=== PATIENT | female | born 1970 | race American Indian/Alaskan Native ===

== ENCOUNTER 2016-10-28 13:02 | Emergency (ER) | payer MEDICAID ==
[2016-10-28 13:09] VITALS: BMI 24.7
[2016-10-28 13:14] VITALS: TEMP 98.6
[2016-10-28] MEDS ORDERED: Sodium Chloride 0.9% 1,000 ML IV ONE (13:24)
--- NOTE | 2016-10-28 13:26 | ED PDOC ---
Arrival/HPI - General Chief Complaint: High Blood Sugar Time Seen by Provider: 10/28/16 13:20 Historian: Patient - History of Present Illness Narrative History of Present Illness (Text): 10/28/16 13:20 A 46 year old female, whose past medical history includes diabetes on Januvia, hypertension and MS, presents to the emergency department complaining of high blood sugar since today. Patient is unsure of how high her blood sugar measured. Patient is asymptomatic and denies any complaints. Patient denies any fever, chills, body aches, nausea, vomiting, diarrhea, abdominal pain, urinary symptoms, chest pain, shortness of breath, cough, sore throat, sinus congestion , rhinorrhea or any other complaints. PMD: Dr. Suly Jin Time/Duration: Other (Today) Symptom Course: Unchanged Quality: Other Context: Other Past Medical History - Provider Review Nursing Documentation Reviewed: Yes - Infectious Disease Hx of Infectious Diseases: None - Cardiac Hx Cardiac Disorders: Yes Hx Hypertension: Yes - Pulmonary Hx Respiratory Disorders: Yes Hx Asthma: Yes - Neurological Hx Neurological Disorder: Yes Hx Meningitis: Yes Hx Multiple Sclerosis: Yes Other/Comment: Rt. sided brain aneurysm - Endocrine/Metabolic Hx Endocrine Disorders: Yes Hx Diabetes Mellitus Type 2: Yes - Musculoskeletal/Rheumatological Hx Falls: No - Psychiatric Hx Psychophysiologic Disorder: Yes Hx Anxiety: Yes Hx Bipolar Disorder: Yes Hx Depression: Yes Hx Panic Disorder: Yes Hx Substance Use: No - Surgical History Hx Section: Yes Other/Comment: neuro - Anesthesia Hx Anesthesia: No Hx Anesthesia Reactions: No Family/Social History - Physician Review Nursing Documentation Reviewed: Yes Family/Social History: No Known Family HX Smoking Status: Never Smoked Hx Alcohol Use: Yes Frequency of alcohol use: Socially Hx Substance Use: No Allergies/Home Meds Allergies/Adverse Reactions: Allergies No Known Allergies Allergy (Verified 04/10/16 19:10) Home Medications: Home Meds Medication Instructions Recorded Confirmed Atorvastatin [Lipitor] 40 mg PO DAILY 12/30/15 10/28/16 Glimepiride [amaRYL] 2 mg PO BID 12/30/15 10/28/16 MetFORMIN [glucoPHAGE] 1,000 mg PO BID 12/30/15 10/28/16 Metoprolol Succinate [Toprol XL] 100 mg PO DAILY 12/30/15 10/28/16 QUEtiapine [SEROquel] 300 mg PO DAILY 12/30/15 10/28/16 SITagliptin [Januvia] 100 mg PO DAILY 12/30/15 10/28/16 Tolterodine [Detrol LA] 4 mg PO DAILY 12/30/15 10/28/16 Valsartan [Diovan] 160 mg PO DAILY 12/30/15 10/28/16 buPROPion XL [Wellbutrin XL] 300 mg PO DAILY 12/30/15 10/28/16 Review of Systems - Physician Review All systems were reviewed & negative as marked: Yes - Review of Systems Constitutional: Other (High blood pressure). absent: Fevers, Night Sweats ENT: absent: Sore Throat, Rhinorrhea, Sinus Congestion Respiratory: absent: SOB, Cough Cardiovascular: absent: Chest Pain Gastrointestinal: absent: Abdominal Pain, Diarrhea, Nausea, Vomiting Genitourinary Female: absent: Dysuria, Frequency, Hematuria, Urine Output Changes Musculoskeletal: absent: Myalgias Physical Exam Vital Signs Reviewed: Yes Vital Signs Temp Pulse Resp BP Pulse Ox 10/28/16 16:47 71 17 180/100 H 97 10/28/16 15:54 78 203/132 H 10/28/16 15:53 81 203/132 H 10/28/16 15:40 74 20 203/132 H 99 10/28/16 13:02 98.6 F 91 H 16 182/103 H 99 Temperature: Afebrile Blood Pressure: Hypertensive Pulse: Tachycardic Respiratory Rate: Normal Appearance: Positive for: Well-Appearing, Non-Toxic, Comfortable Pain Distress: None Mental Status: Positive for: Alert and Oriented X 3 Finger Stick Blood Glucose: 292 - Systems Exam Head: Present: Atraumatic, Normocephalic Pupils: Present: Other (Left eye PERRL, Right glass eye not reactive) Extroacular Muscles: Present: EOMI Conjunctiva: Present: Normal Mouth: Present: Moist Mucous Membranes Neck: Present: Normal Range of Motion Respiratory/Chest: Present: Clear to Auscultation, Good Air Exchange. No: Respiratory Distress, Accessory Muscle Use Cardiovascular: Present: Regular Rate and Rhythm, Normal S1, S2. No: Murmurs Abdomen: Present: Normal Bowel Sounds. No: Tenderness, Distention, Peritoneal Signs Back: Present: Normal Inspection Upper Extremity: Present: Normal Inspection. No: Cyanosis, Edema Lower Extremity: Present: Normal Inspection. No: Edema Neurological: Present: GCS=15, CN II-XII Intact, Speech Normal Skin: Present: Warm, Dry, Normal Color. No: Rashes Psychiatric: Present: Alert, Oriented x 3, Normal Insight, Normal Concentration Medical Decision Making ED Course and Treatment: 10/28/16 13:20 Impression: A 46 year old female with high blood sugar. Patient is asymptomatic and denies any complaints. Physical exam unremarkable. Differential Diagnosis included but are not limited to: Hyperglycemia, rule out Infectious ideology vs. Poor diet vs. Noncompliant with medication Plan: -- Labs -- Urinalysis -- IV fluids -- Reassess and disposition Progress Notes: 10/28/16 15:36 UTI treated with Bactrim. Patient with follow up with Dr. Jin. Patient in no acute distress. I have discussed the results and plan with the patient, who expresses understanding. Patient in agreement with plan to discharged home. Patient is stable for discharge. Her blood pressure improved and she continues to be asymptomatic in the ED. Patient was instructed to follow up with physician or return if symptoms worsen or new concerning symptoms arise. - Lab Interpretations Lab Results: 10/28/16 14:10 10/28/16 14:10 Lab Results 10/28/16 14:39: Urine Color Yellow, Urine Appearance Sl cloudy, Urine pH 6.0, Ur Specific [place] 1.025, Urine Protein 30 H, Urine Glucose (UA) >=1000, Urine Ketones Negative, Urine Blood Trace-lysed H, Urine Nitrate Negative, Urine Bilirubin Negative, Urine Urobilinogen 0.2, Ur Leukocyte Esterase Trace H, Urine RBC 0 - 2, Urine WBC Tntc, Ur Epithelial Cells Many, Urine Bacteria Mod, Urine Other Trichomonas 10/28/16 14:10: WBC 9.0 D, RBC 4.61, Hgb 12.9, Hct 38.0, MCV 82.4, MCH 28.0, MCHC 33.9, RDW 13.8, Plt Count 204, MPV 11.3 H, Gran % 64.2, Lymph % (Auto) 26.8 , [place] % (Auto) 6.7 H, Eos % (Auto) 1.9, Baso % (Auto) 0.4, Gran # 5.78, Lymph # 2.4, [place] # 0.6, Eos # 0.2, Baso # 0.04, pO2 75 H, VBG pH 7.37, VBG pCO2 43.0 , VBG HCO3 24.9, VBG Total CO2 26.2, VBG O2 Sat (Calc) 97.1 H, VBG Base Excess - 0.6 L, VBG Potassium 3.1 L, Glucose 261 H, Lactate 1.8, FiO2 21.0, Sodium 138.0 , Potassium 3.2 L, Chloride 106.0, Carbon Dioxide 26, Anion Gap 13, BUN 14, Creatinine 0.8, Est GFR ( Amer) > 60, Est GFR (Non-Af Amer) > 60, Random Glucose 235 H, Calcium 10.1, Magnesium 1.7, Venous Blood Potassium 3.1 L I have reviewed the lab results: Yes - Medication Orders Current Medication Orders: Discontinued Medications Sodium Chloride (Sodium Chloride 0.9%) 1,000 mls @ 2,000 mls/hr IV .Q30M ONE Stop: 10/28/16 13:53 Last Admin: 10/28/16 14:16 Dose: 2,000 MLS/HR eMAR Start Stop Document 10/28/16 14:16 [facility] (Rec: 10/28/16 14:17 [id number] Intravenous Solution Start Date 10/28/16 Start Time 02:10 End Date 10/28/16 End time 02:40 Total Infusion Time 30 Labetalol HCl (Trandate) 20 mg IV STAT STA Stop: 10/28/16 15:42 Last Admin: 10/28/16 15:53 Dose: 20 MG MAR Pulse and Blood Pressure Document 10/28/16 15:53 [facility] (Rec: 10/28/16 15:53 [id number][facility] Pulse Pulse Rate (60-90) 81 Blood Pressure Blood Pressure (100/60-150/90) 203/132 eMAR Start Stop Document 10/28/16 15:53 [facility] (Rec: 10/28/16 15:53 [place] [id number]) Intravenous Solution Start Date 10/28/16 Start Time 15:45 End Date 10/28/16 End time 15:47 Total Infusion Time 2 Labetalol HCl (Trandate) Confirm Administered Dose 100 mg .ROUTE .STK-MED ONE Stop: 10/28/16 15:44 Last Admin: 10/28/16 15:54 Dose: MAR Pulse and Blood Pressure Document 10/28/16 15:54 [facility] (Rec: 10/28/16 15:54 [facility] [id number]) Pulse Pulse Rate (60-90) 78 Blood Pressure Blood Pressure (100/60-150/90) 203/132 Potassium Chloride (K-Dur 20 Meq Er Tab) 40 meq PO STAT STA Stop: 10/28/16 15:02 Last Admin: 10/28/16 15:35 Dose: 40 MEQ Trimethoprim/Sulfamethoxazole (Bactrim Ds Tab) 1 tab PO STAT STA PRN Reason: Protocol Stop: 10/28/16 15:26 Last Admin: 10/28/16 15:44 Dose: 1 TAB - Scribe Statement The provider has reviewed the documentation as recorded by the Scribe Suly Ronquillo Provider Scribe Attestation: All medical record entries made by the Scribe were at my direction and personally dictated by me. I have reviewed the chart and agree that the record accurately reflects my personal performance of the history, physical exam, medical decision making, and the department course for this patient. I have also personally directed, reviewed, and agree with the discharge instructions and disposition. Disposition/Present on Arrival - Present on Arrival Any Indicators Present on Arrival: No History of DVT/PE: No History of Uncontrolled Diabetes: No Urinary Catheter: No History of Decub. Ulcer: No History Surgical Site Infection Following: None - Disposition Have Diagnosis and Disposition been Completed?: Yes Diagnosis: UTI (urinary tract infection), Diabetes mellitus Disposition: HOME/ ROUTINE Disposition Time: 17:48 Patient Plan: Discharge Condition: IMPROVED Discharge Instructions (ExitCare): Urinary Tract Infection in Women (DC), Diabetes Mellitus Type 2 in Adults (ED) Additional Instructions: Ms Smith, thank you for letting us take care of you today. Your provider was Dr. Butler. You were treated for Hyperglycemia in a diabetic, UTI. The emergency medical care you received today was directed at your acute symptoms. If you were prescribed any medication, please fill it and take as directed. It may take several days for your symptoms to resolve. Return to the Emergency Department if your symptoms worsen, do not improve, or if you have any other problems. Please contact your doctor or call one of the physicians/clinics you have been referred to that are listed on the Patient Visit Information form that is included in your discharge packet. Bring any paperwork you were given at discharge with you along with any medications you are taking to your follow up visit. Our treatment cannot replace ongoing medical care by a primary care provider (PCP) outside of the emergency department. Thank you for allowing the [facility] team to be part of your care today. If you had an X-Ray or CT scan: A Radiologist will review the ED reading if any change in treatment is needed we will contact you. If you had a blood, urine, or wound culture: It will take several days for the results, if any change in treatment is needed we will contact you. If you had an STI test: It will take 48 hours for the results. Please call after 1 week if you have not heard back. Prescriptions: Sulfamethoxazole/Trimethoprim [Bactrim DS 800 mg-160 mg] 1 tab PO Q12 #10 tab Referrals: Suly Jin MD [Family Provider] - Follow up with primary Forms: WORK NOTE
[2016-10-28 14:20] LABS: ADD MANUAL DIFF? NO
[2016-10-28 14:22] LABS: BASO # 0.04 K/mm3 (0.0-2.0); BASO % 0.4 % (0.0-3.0); EOS # 0.2 (0.0-0.7); EOS % 1.9 % (1.5-5.0); GRAN # 5.78 (1.4-6.5); GRAN % 64.2 % (50.0-68.0); LYMPH # 2.4 (1.2-3.4); LYMPH % 26.8 % (22.0-35.0); MEAN CELL VOLUME 82.4 fL (80.0-105.0); MEAN CORPUSCULAR HGB CONC 33.9 g/dl (31.0-37.0); MEAN PLATELET VOLUME 11.3 fl (7.0-11.0); MONO # 0.6 (0.1-0.6); MONO % 6.7 % (1.0-6.0); PLATELET COUNT 204 10^3/uL (120.0-450.0); RED CELL DISTRIBUTION WIDTH 13.8 % (11.5-14.5)
[2016-10-28 14:33] LABS: BLOOD UREA NITROGEN 14 mg/dL (7-21); CALCIUM 10.1 mg/dL (8.4-10.5); CARBON DIOXIDE 26 mmol/L (21-33); CHLORIDE 102 mmol/L (98-107); GFR AFRICAN-AMERICAN > 60; GLUCOSE,RANDOM 235 mg/dL (70-110); MAGNESIUM 1.7 mg/dL (1.7-2.2); POTASSIUM 3.2 mmol/L (3.6-5.0); SODIUM 138 mmol/L (132-148)
[2016-10-28 14:57] LABS: VENOUS BLOOD GAS BASE EXCESS -0.6 mmol/L (0.0-2.0); VENOUS BLOOD PH 7.37 (7.32-7.43)
[2016-10-28] MEDS ORDERED: Potassium Chloride 20 mEq ER Tab PO STA (15:01)
[2016-10-28 15:03] LABS: URINE BILIRUBIN NEGATIVE (NEGATIVE); URINE BLOOD TRACE-LYSED (NEGATIVE); URINE GLUCOSE (UA) >=1000 mg/dL (NEGATIVE); URINE KETONE NEGATIVE (NEGATIVE); URINE LEUKOCYTE ESTERASE TRACE Leu/uL (NEGATIVE); URINE PROTEIN 30 mg/dL (<30 mg/dL); URINE UROBILINOGEN 0.2 E.U./dL (<1 E.U./dL)
[2016-10-28 15:04] LABS: URINE APPEARANCE SL CLOUDY (CLEAR); URINE COLOR YELLOW (YELLOW)
[2016-10-28 15:16] LABS: URINE EPITHELIAL CELLS MANY /hpf (0-5)
[2016-10-28 15:17] LABS: URINE BACTERIA MOD (NEG)
[2016-10-28 15:18] LABS: URINE WBC TNTC /hpf (0-6)
[2016-10-28 15:20] LABS: URINE RBC 0 - 2 /hpf (0-2)
[2016-10-28] MEDS ORDERED: Tmp-Smz 800 mg-160 mg DS Tab PO STA (15:25)
[2016-10-28] MEDS ORDERED: Labetalol 5 mg/ml Inj 20ML IV STA (15:41)
[2016-10-28] MEDS ORDERED: Labetalol 5 mg/ml Inj 20ML ONE (15:43)
[2016-10-28 17:48] VITALS: BP 180/100; PULSE 71; RESP 17; O2SAT 97
== END 2016-10-28 16:00 | disposition home or self-care (01) ==
LOC: ED 13:02
DX: N39.0 Urinary tract infection, site not specified (principal); E11.65 Type 2 diabetes mellitus with hyperglycemia; G35 Multiple sclerosis; I10 Essential (primary) hypertension
CPT/HCPCS: 80048; 81001; 82803; 83735; 85025; 87086; 99284; J7040

== ENCOUNTER 2017-02-16 10:10 | Observation (INO) | payer MEDICAID ==
[2017-02-16 10:13] VITALS: BMI 25.8
[2017-02-16] MEDS ORDERED: Sodium Chloride 0.9% 1,000 ML IV SCH (10:30)
--- NOTE | 2017-02-16 10:31 | ED PDOC ---
Arrival/HPI - General Chief Complaint: Altered Mental Status Time Seen by Provider: 02/16/17 10:11 Historian: Patient - History of Present Illness Narrative History of Present Illness (Text): 02/16/17 10:10 Destinee Smith is a 46 year old female brought in by EMS, whose past medical history includes diabetes, hypertension and MS, who presents to the emergency department complaining of AMS prior to arrival. As per home health aid, patient was not answering door and was found unconscious by EMS. En route to ER, Blood sugar level were found to be around 450s. In emergency department, Patient is drowsy but arousable to verbal stimuli and her blood sugar level is 489. Patient denies any pain or any other complaint at this time. Patient endorses that she does not do any drugs. PMD: Dr. Jin Time/Duration: 1-3 hours Symptom Onset: Gradual Symptom Course: Unchanged Activities at Onset: Rest Context: Home Past Medical History - Provider Review Nursing Documentation Reviewed: Yes - Infectious Disease Hx of Infectious Diseases: None - Cardiac Hx Cardiac Disorders: Yes Hx Hypertension: Yes - Pulmonary Hx Respiratory Disorders: Yes Hx Asthma: Yes - Neurological Hx Neurological Disorder: Yes Hx Meningitis: Yes Hx Multiple Sclerosis: Yes Other/Comment: Rt. 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 - Endocrine/Metabolic Hx Endocrine Disorders: Yes Hx Diabetes Mellitus Type 2: Yes - Musculoskeletal/Rheumatological Hx Falls: No - Psychiatric Hx Psychophysiologic Disorder: Yes Hx Anxiety: Yes Hx Bipolar Disorder: Yes Hx Depression: Yes Hx Panic Disorder: Yes Hx Substance Use: No - Surgical History Hx Section: Yes Other/Comment: neuro - Anesthesia Hx Anesthesia: No Hx Anesthesia Reactions: No Family/Social History - Physician Review Nursing Documentation Reviewed: Yes Family/Social History: No Known Family HX Smoking Status: Never Smoked Hx Alcohol Use: Yes Hx Substance Use: No Allergies/Home Meds Allergies/Adverse Reactions: Allergies shellfish derived Allergy (Severe, Verified 02/16/17 12:53) RASH Home Medications: Home Meds Medication Instructions Recorded Confirmed Atorvastatin [Lipitor] 40 mg PO DAILY 12/30/15 10/28/16 Glimepiride [amaRYL] 2 mg PO BID 12/30/15 10/28/16 MetFORMIN [glucoPHAGE] 1,000 mg PO BID 12/30/15 10/28/16 Metoprolol Succinate [Toprol XL] 100 mg PO DAILY 12/30/15 10/28/16 QUEtiapine [SEROquel] 300 mg PO DAILY 12/30/15 10/28/16 SITagliptin [Januvia] 100 mg PO DAILY 12/30/15 10/28/16 Tolterodine [Detrol LA] 4 mg PO DAILY 12/30/15 10/28/16 Valsartan [Diovan] 160 mg PO DAILY 12/30/15 10/28/16 buPROPion XL [Wellbutrin XL] 300 mg PO DAILY 12/30/15 10/28/16 Review of Systems - Physician Review All systems were reviewed & negative as marked: Yes - Review of Systems Constitutional: Other (AMS). absent: Fevers, Night Sweats Eyes: absent: Vision Changes ENT: absent: Hearing Changes Respiratory: absent: SOB, Cough Cardiovascular: absent: Chest Pain Gastrointestinal: absent: Abdominal Pain Genitourinary Female: absent: Dysuria Musculoskeletal: absent: Arthralgias, Back Pain Skin: absent: Rash Neurological: absent: Headache Endocrine: absent: Diaphoresis Hemo/Lymphatic: absent: Adenopathy Psychiatric: absent: Anxiety Physical Exam Vital Signs Temp Pulse Resp BP Pulse Ox 02/16/17 10:10 97.9 F 90 18 150/87 98 Appearance: Positive for: Other (Drowsy) Pain Distress: None Mental Status: Positive for: Alert and Oriented X 3, other (arousable to voice) - Systems Exam Head: Present: Atraumatic, Normocephalic Pupils: Present: PERRL (unreactive), Other Extroacular Muscles: Present: EOMI Conjunctiva: Present: Normal Mouth: Present: Moist Mucous Membranes, Other (Upper tooth has dry blood with tenderness, no pus or drainage) Neck: Present: Normal Range of Motion Respiratory/Chest: Present: Clear to Auscultation, Good Air Exchange. No: Respiratory Distress, Accessory Muscle Use Cardiovascular: Present: Regular Rate and Rhythm, Normal S1, S2. No: Murmurs Abdomen: Present: Normal Bowel Sounds. No: Tenderness, Distention, Peritoneal Signs Back: Present: Normal Inspection Upper Extremity: Present: Normal Inspection. No: Cyanosis, Edema Lower Extremity: Present: Normal Inspection. No: Edema Neurological: Present: GCS=15, CN II-XII Intact, Speech Normal Skin: Present: Warm, Dry, Normal Color. No: Rashes Psychiatric: Present: Alert, Oriented x 3, Normal Insight, Normal Concentration Medical Decision Making ED Course and Treatment: 02/16/17 10:10 Impression: 46 year old female brought in by EMS complaining of AMS prior to arrival Differential Diagnosis included but are not limited to: AMS r/o seizure, CVA, medication reaction, drug use, DKA Plan: -- EKG -- Chest X-ray -- Head CT w/o contrast -- VBG and Blood Culture -- Urinalysis and Urine Culture -- Labs -- IV Fluids -- Reassess and disposition Prior Visits: Notes and results from previous visits were reviewed. Patient last seen in the ED on 10/28/16 for high blood sugar that day. Patient was discharged home. Progress Notes: EKG: Ordered, reviewed, and independently interpreted the EKG. Rate : 82 BPM Rhythm : NSR Interpretation : General ST- changes Comparison : No changes from previous on 04/10/16 02/16/17 11:[address] w/o contrast: Dictator : Naseem Felder MD FINDINGS: HEMORRHAGE:No intracranial hemorrhage. BRAIN: No intracranial mass. There is an aneurysm clip left parasellar with extensive resulting beam hardening artifact at the level of the clip. This obscures the posterior fossa to some extent. There is a small area of encephalomalacia in the high right frontal lobe unchanged from prior examination. This may reflect a small old infarct. There is no evidence of acute infarct. There is an old right basal ganglia lacunar infarct. There are bilateral old thalamic lacunar infarcts. There is no significant atrophy. There is moderate to severe periventricular white matter lucency consistent with microvascular ischemic change. This is greater than expected for this patient's age. VENTRICLES:Unremarkable. No hydrocephalus. CALVARIUM:Unremarkable. PARANASAL SINUSES:Unremarkable as visualized. No significant inflammatory changes. MASTOID AIR CELLS:nremarkable as visualized. No inflammatory changes. OTHER FINDINGS:Right phthisis bulbi IMPRESSION: No evidence of acute infarct. No intracranial mass or hemorrhage. Extensive chronic white matter ischemic change greater than expected for patient age but unchanged since 04/11/2016. Possible small old high right frontal cortical infarct. Old right basal ganglia lacunar infarct and small old bilateral thalamic lacunar infarcts. Aneurysm clip in the left parasellar region. 02/16/17 12:20 On reevaluation, patient is alert and oriented x3.Urine results are positive for UTI. Will treat with Rocephin. Also positive for Trich so will tx with Flagyl. Case discussed with Dr. Urbina who will admit to remote telemetry for monitoring r/o Sepsis. - Critical Care Critical Care Minutes: 30 minutes - Lab Interpretations Lab Results: 02/16/17 10:30 02/16/17 10:30 Lab Results 02/16/17 12:35: POC Glucose (mg/dL) 303 H 02/16/17 11:30: Urine Opiates Screen Negative, Urine Methadone Screen Negative, Ur Barbiturates Screen Negative, Ur Phencyclidine Scrn Negative, Ur Amphetamines Screen Negative, U Benzodiazepines Scrn Positive H, U Oth Cocaine Metabols Negative, U Cannabinoids Screen Positive H 02/16/17 11:30: Urine Color Yellow, Urine Appearance Sl cloudy, Urine pH 7.0, Ur Specific [place] 1.010, Urine Protein 30 H, Urine Glucose (UA) >=1000, Urine Ketones Negative, Urine Blood Small H, Urine Nitrate Negative, Urine Bilirubin Negative, Urine Urobilinogen 1.0 H, Ur Leukocyte Esterase Small H, Urine RBC 0 - 2, Urine WBC 25 - 30, Ur Epithelial Cells 1 - 3, Urine Bacteria Small, Urine Other Trichomonas 02/16/17 10:30: pO2 57 H, VBG pH 7.28 L, VBG pCO2 43.0, VBG HCO3 20.2 L, VBG Total CO2 21.5 L, VBG O2 Sat (Calc) 92.8 H, VBG Base Excess -6.4 L, VBG Potassium 3.6, Sodium 148.0, Chloride 91.0 L, Glucose 580 H* D, Lactate 2.8 H, FiO2 21.0, Venous Blood Potassium 3.6 02/16/17 10:30: Alcohol, Quantitative < 10 02/16/17 10:30: Salicylates < 1 L, Acetaminophen < 10.0 L 02/16/17 10:30: Sodium 135, Chloride 100, Potassium 3.2 L, Carbon Dioxide 22, Anion Gap 16, BUN 14, Creatinine 1.5 H, Est GFR ( Amer) 45, Est GFR (Non- Af Amer) 38, Random Glucose 567 H* D, Calcium 8.8, Phosphorus 3.2, Magnesium 1.6 L, Total Bilirubin 0.7, AST 20, ALT 19, Alkaline Phosphatase 94, Lactate Dehydrogenase 529, Total Creatine Kinase 75, Troponin I 0.06 D, Total Protein 7.4, Albumin 3.9, Globulin 3.6, Albumin/Globulin Ratio 1.1 02/16/17 10:30: PT 10.6, INR 0.98, APTT 24.8 02/16/17 10:30: WBC 14.0 H D, RBC 4.78, Hgb 13.5, Hct 39.8, MCV 83.3, MCH 28.2, MCHC 33.9, RDW 13.4, Plt Count 195, MPV 11.0, Gran % 85.7 H, Lymph % (Auto) 10.0 L, [place] % (Auto) 4.0, Eos % (Auto) 0.2 L, Baso % (Auto) 0.1, Gran # 11.96 H , Lymph # 1.4, [place] # 0.6, Eos # 0.0, Baso # 0.02 02/16/17 10:13: POC Glucose (mg/dL) 489 H* I have reviewed the lab results: Yes Interpretation: Abnormal lab values - RAD Interpretation Radiology Orders: 02/16/17 10:16 HEAD W/O CONTRAST [CT] Stat 02/16/17 10:17 CHEST PORTABLE [RAD] Stat Personal Care Home Administrator: Radiologist - Medication Orders Current Medication Orders: Sodium Chloride (Sodium Chloride 0.9%) 1,000 mls @ 100 mls/hr IV .Q10H [facility] Last Admin: 02/16/17 10:30 Dose: 100 mls/hr Potassium Chloride 20 meq/ (Sodium Chloride) 1,010 mls @ 250 mls/hr IV .Q4H3M STA Stop: 02/16/17 16:40 Last Admin: 02/16/17 12:48 Dose: 250 mls/hr Discontinued Medications Sodium Chloride (Sodium Chloride 0.9%) 1,000 mls @ 999 mls/hr IV .Q1H1M STA Stop: 02/16/17 11:38 Last Admin: 02/16/17 11:10 Dose: 999 mls/hr Potassium Chloride 20 meq/ (Sodium Chloride) 1,010 mls @ 999 mls/hr IV .Q1H1M STA Stop: 02/16/17 12:11 Last Admin: 02/16/17 12:44 Dose: Ceftriaxone Sodium (Rocephin 1 Gram Ivpb) 1 gm in 100 mls @ 200 mls/hr IVPB STAT STA PRN Reason: Protocol Stop: 02/16/17 12:54 Insulin Human Regular (Humulin R) 10 units IVP STAT STA Stop: 02/16/17 10:56 Last Admin: 02/16/17 11:19 Dose: 10 units Magnesium Oxide (Mag-Ox) 400 mg PO STAT STA Stop: 02/16/17 12:27 Metronidazole (Flagyl) 2,000 mg PO STAT STA PRN Reason: Protocol Stop: 02/16/17 12:28 Potassium Chloride (K-Dur 20 Meq Er Tab) 40 meq PO STAT STA Stop: 02/16/17 11:14 Last Admin: 02/16/17 11:45 Dose: 40 meq - Scribe Statement The provider has reviewed the documentation as recorded by the Maryann Naik Provider Scribe Attestation: All medical record entries made by the Maryann were at my direction and personally dictated by me. I have reviewed the chart and agree that the record accurately reflects my personal performance of the history, physical exam, medical decision making, and the department course for this patient. I have also personally directed, reviewed, and agree with the discharge instructions and disposition. Disposition/Present on Arrival - Present on Arrival Any Indicators Present on Arrival: No History of DVT/PE: No History of Uncontrolled Diabetes: No Urinary Catheter: No History of Decub. Ulcer: No History Surgical Site Infection Following: None - Disposition Have Diagnosis and Disposition been Completed?: Yes Diagnosis: Uncontrolled diabetes mellitus, Hypokalemia, Hypomagnesemia, UTI (urinary tract infection) Disposition: HOSPITALIZED Disposition Time: 12:48 Patient Plan: Observation Condition: GUARDED
[2017-02-16] MEDS ORDERED: Sodium Chloride 0.9% 1,000 ML IV STA (10:38)
[2017-02-16 10:43] LABS: VENOUS BLOOD GAS BASE EXCESS -6.4 mmol/L (0.0-2.0); VENOUS BLOOD GAS PO2 57 mm/Hg (30-55); VENOUS BLOOD PH 7.28 (7.32-7.43)
[2017-02-16 10:48] LABS: BASO # 0.02 K/mm3 (0.0-2.0); BASO % 0.1 % (0.0-3.0); EOS % 0.2 % (1.5-5.0); GRAN # 11.96 (1.4-6.5); GRAN % 85.7 % (50.0-68.0); HEMOGLOBIN 13.5 gm/dL (12.0-16.0); LYMPH # 1.4 (1.2-3.4); MEAN CELL VOLUME 83.3 fL (80.0-105.0); MEAN CORPUSCULAR HEMOGLOBIN 28.2 pg (25.0-35.0); MEAN CORPUSCULAR HGB CONC 33.9 g/dl (31.0-37.0); MONO # 0.6 (0.1-0.6); PLATELET COUNT 195 10^3/uL (120.0-450.0); RBC 4.78 10^6/uL (3.5-6.1); RED CELL DISTRIBUTION WIDTH 13.4 % (11.5-14.5)
[2017-02-16 10:52] LABS: SALICYLATE < 1 mg/dL (2.0-20.0)
[2017-02-16 10:53] LABS: ACETAMINOPHEN < 10.0 ug/ml (10.0-20.0)
[2017-02-16 10:54] LABS: INR 0.98 (0.93-1.08); PARTIAL THROMBOPLASTIN TIME 24.8 Seconds (23.7-30.8); PROTHROMBIN TIME 10.6 Seconds (9.9-11.8)
[2017-02-16] MEDS ORDERED: Insulin Regular 1 UNITS/0.01 ML ML IVP STA (10:55)
[2017-02-16 10:57] LABS: ALB/GLOB RATIO 1.1 (1.1-1.8); ALBUMIN 3.9 g/dL (3.0-4.8); CALCIUM 8.8 mg/dL (8.4-10.5); MAGNESIUM 1.6 mg/dL (1.7-2.2)
--- NOTE | 2017-02-16 11:02 | CT ---
PROCEDURE: CT HEAD WITHOUT CONTRAST. HISTORY: altered mental status COMPARISON: 04/11/2016 TECHNIQUE: Axial computed tomography images were obtained through the head/brain without intravenous contrast. Radiation dose: Total exam DLP = 689.80 mGy-cm. This CT exam was performed using one or more of the following dose reduction techniques: Automated exposure control, adjustment of the mA and/or kV according to patient size, and/or use of iterative reconstruction technique. FINDINGS: HEMORRHAGE: No intracranial hemorrhage. BRAIN: No intracranial mass. There is an aneurysm clip left parasellar with extensive resulting beam hardening artifact at the level of the clip. This obscures the posterior fossa to some extent. There is a small area of encephalomalacia in the high right frontal lobe unchanged from prior examination. This may reflect a small old infarct. There is no evidence of acute infarct. There is an old right basal ganglia lacunar infarct. There are bilateral old thalamic lacunar infarcts. There is no significant atrophy. There is moderate to severe periventricular white matter lucency consistent with microvascular ischemic change. This is greater than expected for this patient's age. VENTRICLES: Unremarkable. No hydrocephalus. CALVARIUM: Unremarkable. PARANASAL SINUSES: Unremarkable as visualized. No significant inflammatory changes. MASTOID AIR CELLS: Unremarkable as visualized. No inflammatory changes. OTHER FINDINGS: Right phthisis bulbi IMPRESSION: No evidence of acute infarct. No intracranial mass or hemorrhage. Extensive chronic white matter ischemic change greater than expected for patient age but unchanged since 04/11/2016. Possible small old high right frontal cortical infarct. Old right basal ganglia lacunar infarct and small old bilateral thalamic lacunar infarcts. Aneurysm clip in the left parasellar region.
[2017-02-16 11:07] LABS: TROPONIN I 0.06 ng/mL
[2017-02-16] MEDS ORDERED: Potassium Chloride 20 mEq ER Tab PO STA ×2 (11:09→11:13)
[2017-02-16 11:54] LABS: URINE BILIRUBIN NEGATIVE (NEGATIVE); URINE BLOOD SMALL (NEGATIVE); URINE GLUCOSE (UA) >=1000 mg/dL (NEGATIVE); URINE LEUKOCYTE ESTERASE SMALL Leu/uL (NEGATIVE); URINE NITRATE NEGATIVE (NEGATIVE); URINE PROTEIN 30 mg/dL (<30 mg/dL)
[2017-02-16 11:56] LABS: URINE APPEARANCE SL CLOUDY (CLEAR); URINE COLOR YELLOW (YELLOW)
[2017-02-16 12:08] LABS: URINE BACTERIA SMALL (NEG); URINE RBC 0 - 2 /hpf (0-2); URINE WBC 25 - 30 /hpf (0-6)
[2017-02-16] MEDS ORDERED: cefTRIAXone 1 gm 1 GM/100 ML BAG IVPB STA (12:25)
[2017-02-16] MEDS ORDERED: Magnesium Oxide 400 mg Tab UD PO STA (12:26)
[2017-02-16 12:58] LABS: BARBITURATES, UR NEGATIVE (NEGATIVE); BENZODIAZEPINES, UR POSITIVE (NEGATIVE); OPIATES, UR NEGATIVE (NEGATIVE); PHENCYCLIDINE, UR NEGATIVE (NEGATIVE)
--- NOTE | 2017-02-16 14:15 | RAD ---
HISTORY: altered mental status COMPARISON: No prior. FINDINGS: LUNGS: No active pulmonary disease. PLEURA: No significant pleural effusion identified, no pneumothorax apparent. CARDIOVASCULAR: Normal. OSSEOUS STRUCTURES: No significant abnormalities. VISUALIZED UPPER ABDOMEN: Normal. OTHER FINDINGS: None. IMPRESSION: No active disease.
[2017-02-16 14:46] LABS: VENOUS BLOOD GAS PO2 43 mm/Hg (30-55); VENOUS BLOOD PH 7.36 (7.32-7.43)
--- NOTE | 2017-02-16 15:03 | CP.PCM.HP ---
<Evelyn Mcmanus - Last Filed: 02/16/17 15:24> History of Present Illness - History of Present Illness History of Present Illness: Internal medicine H & P for Dr. Essie Mcmanus, PGY-1 Pt S & E at bedside. History as per PMD's office and EMR due to AMS. 46F w/PMH sig for HTN, DM, bipolar d/o and R sided aneurysm admitted for AMS. At time of interview, pt is arousable, slightly lethargic, only answering some questions. Per home health aid, pt did not answer door, EMS called, pt found unconscious. Work up by EMS revealed blood sugar was over 400. Pt currently w/o complaints, declines answering any other questions- states that we have her records. Unable to perform ROS due to non compliance/AMS. PMH (verified by PMD office): HTN, DM, Bipolar d/o, depression, R sided aneurysm , MS, hx falling, hx UTI, non compliant w/meds, hypothyroidism, anemia PSH: Brain surgery for aneurysm All: NKDA SH: Former tobacco use. Denies ETOH or drug use. Has a homemaker for MS dx. PMD: Suly Jin Home meds recently refilled as per PMD: Seroquel 300mg HS, Januvia 100mg QD, Metformin 1000mg BID, Toprol XL 1 PO BID, Valsartan 160mg QD Questionable meds as per PMD: Albuterol (?), Nicotine patch (?), Glimipride 2mg QD (?), Pt was referred to outpt neuro: Joellen Panchal Pharm: [facility] [address] Present on Admission - Present on Admission Any Indicators Present on Admission: No History of DVT/PE: No History of Uncontrolled Diabetes: Yes Urinary Catheter: No Decubitus Ulcer Present: No Review of Systems - Review of Systems Systems not reviewed;Unavailable: Uncooperative Past Patient History - Infectious Disease Hx of Infectious Diseases: None - Past Social History Smoking Status: Former Smoker - CARDIAC Hx Cardiac Disorders: Yes Hx Hypertension: Yes - PULMONARY Hx Respiratory Disorders: Yes Hx Asthma: Yes - NEUROLOGICAL Hx Neurological Disorder: Yes Hx Meningitis: Yes Hx Multiple Sclerosis: Yes Other/Comment: Rt. 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 - ENDOCRINE/METABOLIC Hx Endocrine Disorders: Yes Hx Diabetes Mellitus Type 2: Yes - MUSCULOSKELETAL/RHEUMATOLOGICAL Hx Falls: No - PSYCHIATRIC Hx Psychophysiologic Disorder: Yes Hx Anxiety: Yes Hx Bipolar Disorder: Yes Hx Depression: Yes Hx Panic Symptoms: Yes Hx Substance Use: No - SURGICAL HISTORY Hx Section: Yes Other/Comment: neuro - ANESTHESIA Hx Anesthesia: No Hx Anesthesia Reactions: No Meds Allergies/Adverse Reactions: Allergies Allergy/AdvReac Type Severity Reaction Status Date / Time shellfish derived Allergy Severe RASH Verified 02/16/17 12:53 Physical Exam - Constitutional Appears: Non-toxic, No Acute Distress, Other (Drowsy, arousable) - Head Exam Head Exam: ATRAUMATIC, NORMAL INSPECTION, NORMOCEPHALIC - Eye Exam Eye Exam: EOMI. absent: Normal appearance (proptosis), Nystagmus, Scleral icterus - ENT Exam ENT Exam: Mucous Membranes Moist, Normal Exam - Neck Exam Neck exam: Positive for: Full Rom, Normal Inspection - Respiratory Exam Respiratory Exam: Clear to Auscultation Bilateral, NORMAL BREATHING PATTERN. absent: Rales, Rhonchi, Wheezes, Respiratory Distress - Cardiovascular Exam Cardiovascular Exam: REGULAR RHYTHM, +S1, +S2 - GI/Abdominal Exam GI & Abdominal Exam: Normal Bowel Sounds, Soft. absent: Distended, Firm, Guarding, Rebound, Rigid, Tenderness - Extremities Exam Extremities exam: Positive for: normal inspection. Negative for: pedal edema - Neurological Exam Neurological exam: CN II-XII Intact - Psychiatric Exam Psychiatric exam: Normal Affect Additional comments: Drowsy, arousable - Skin Skin Exam: Dry, Intact, Normal Color, Warm Results - Vital Signs Recent Vital Signs: Last Vital Signs Temp 97.9 F 02/16/17 10:10 Pulse 90 02/16/17 10:10 Resp 18 02/16/17 10:10 BP 150/87 02/16/17 10:10 Pulse Ox 98 02/16/17 10:10 - Labs Result Diagrams: 02/16/17 10:30 02/16/17 10:30 Labs: Laboratory Results - last 24 hr 02/16/17 14:35 pO2 43 VBG pH 7.36 VBG pCO2 37.0 L VBG HCO3 20.9 L VBG Total CO2 22.0 VBG O2 Sat (Calc) 85.5 H VBG Base Excess -4.0 L VBG Potassium 3.7 Sodium 137.0 Chloride 114.0 H Glucose 325 H Lactate 1.8 FiO2 21.0 Venous Blood Potassium 3.7 Assessment & Plan - Assessment and Plan (Free Text) Assessment: PMH sig for HTN, DM, bipolar d/o and R sided aneurysm admitted for AMS, currently arousable, no distress. Plan: AMS Trop neg x 1 Will trend serial trops FU Echo Aspiration precautions Seizure precautions HOB to 30 degrees Neuro consult Cardio consult Sepsis possibly 2/2 UTI, trichomonas Afebrile Leukocytosis 14 LA on admission 2.8, repeat 1.8 U/A pos for LE, neg for nitrate FU Urine cx FU blood cx Rocephin Given dose of Flagyl Monitor PAULO BUN 14 Cr 1.5 NS + 20KCl @125 Monitor DM Blood sugar 580 on admission; now 303 ISS Accuchecks NPO for now Cont home meds: Glimepiride Hypokalemia 3.2 Replaced Now 3.7 Monitor Hypomagnesemia 1.6 Replaced Monitor Drug use UDS pos for benzos, cannabinoids Monitor Bipolar d/o Cont home meds: Wellbutrin, Seroquel Monitor HTN BP 150/87 Cont home meds: Lipitor, Toprol XL Cardio consult Dispo Admit to med surg VS as per protocol PT kranthi MORALEZ attending [place], PGY-1 - Date & Time Date: 02/16/17 Time: 02:30 Decision To Admit - Pt Status Changed To: Hospital Disposition Of: Observation - . Bed Request Type: Remote Telemetry Admitting Physician: Richard Osullivan <Richard Osullivan - Last Filed: 02/16/17 16:54> Results - Vital Signs Recent Vital Signs: Last Vital Signs Temp 98.6 F 02/16/17 15:40 Pulse 87 02/16/17 16:21 Resp 18 02/16/17 15:40 BP 169/102 H 02/16/17 16:21 Pulse Ox 100 02/16/17 15:40 - Labs Result Diagrams: 02/16/17 10:30 02/16/17 10:30 Labs: Laboratory Results - last 24 hr 02/16/17 02/16/17 14:35 16:08 pO2 43 VBG pH 7.36 VBG pCO2 37.0 L VBG HCO3 20.9 L VBG Total CO2 22.0 VBG O2 Sat (Calc) 85.5 H VBG Base Excess -4.0 L VBG Potassium 3.7 Sodium 137.0 Chloride 114.0 H Glucose 325 H Lactate 1.8 FiO2 21.0 POC Glucose (mg/dL) 287 H Venous Blood Potassium 3.7 Attending/Attestation - Attestation I have personally seen and examined this patient.: Yes I have fully participated in the care of the patient.: Yes I have reviewed all pertinent clinical information: Yes Notes (Text): 02/16/17 16:49 attending note; Patient seen and examined with resident in ER. Patient is a 46-year-old female with a past medical history of aneurysmal surgery, old infarcts, MS, diabetes, bipolar disorder was admitted with altered mental status/syncope and fall. Patient was found by a homemaker. In the ER patient is more alert and awake. Syncope; CT head is negative for acute infarct. Neurology evaluation requested. History of MS. Sepsis; possible UTI with leukocytosis. Continue IV Rocephin. One dose of Flagyl given for Trichomonas in urine. uncontrolled diabetes; continue insulin. Acute renal failure; possibly secondary to dehydration. Continue IV fluids. Monitor creatinine. Elevated lactic acid; repeat level is normal. Abnormal EKG; T-wave changes in lateral leads. cardiac enzymes 3 ordered. Continue aspirin. Cardiology evaluation requested. Echo ordered. Physical therapy evaluation ordered. Upon discharge the patient will follow-up with PMD Dr. Jin. 02/16/17 16:54
[2017-02-16] MEDS ORDERED: Metoprolol Succinate 100 mg XL Tab PO ONE (15:45)
[2017-02-16] MEDS ORDERED: Pneumococcal 23-Valent Vaccine IM ONE (15:48)
[2017-02-16] MEDS: Insulin Reg-MEDIUM-Coverage SC SCH ×2 (16:20→23:59)
[2017-02-16] MEDS: Enoxaparin 60 mg Syringe SC SCH (17:08)
[2017-02-16] MEDS: Sodium Chloride 0.9% 1,000 ML IV SCH (18:45)
[2017-02-16 19:50] LABS: TROPONIN I 0.09 ng/mL
[2017-02-16] MEDS ORDERED: Magnesium Sulfate 1 gm in D5W 1 GM/100 ML BAG IVPB ONE (20:58)
[2017-02-16] MEDS ORDERED: Iohexol 350 MG/100 ML VIAL ONE (21:16)
--- NOTE | 2017-02-16 22:12 | CT ---
EXAM: CT Angiography Chest With Intravenous Contrast CLINICAL HISTORY: 46 years old, female; Abnormal findings; Abnormal diagnostic tests; Elevated d-dimer; Additional info: R/O pe TECHNIQUE: Axial computed tomographic angiography images of the chest with intravenous contrast using pulmonary embolism protocol. This CT exam was performed using one or more of the following dose reduction techniques: automated exposure control, adjustment of the mA and/or kV according to patient size, and/or use of iterative reconstruction technique. MIP reconstructed images were created and reviewed. Coronal and sagittal reformatted images were created and reviewed. CONTRAST: 96 mL of [id number] administered intravenously. COMPARISON: DX - CHEST PORTABLE 02/16/2017 12:43:16 PM FINDINGS: Pulmonary arteries: No pulmonary embolism. Aorta: No aneurysm. No dissection. Lungs: Minimal atelectasis. No consolidation. Pleural space: No significant effusion. No pneumothorax. Heart: No cardiomegaly. LEFT ventricular hypertrophy. Trace focal pericardial effusion. Bones/joints: No acute fracture. No dislocation. Soft tissues: Unremarkable. Lymph nodes: No pathologically enlarged lymph nodes. Liver: Small hepatic calcification. IMPRESSION: 1. No CT evidence of pulmonary embolism. 2. Incidental/non-acute findings are described above.
--- NOTE | 2017-02-17 04:08 | CON ---
HISTORY OF PRESENT ILLNESS: This is a 46-year-old black female with the past medical history of hypertension, diabetes, bipolar and admitted with altered mental status and the patient's blood sugar was very high and the patient was found on the floor and EMS found her on the floor and blood sugar was over 400. The patient was unable to talk. PAST MEDICAL HISTORY: Hypertension, diabetes, bipolar, hypothyroidism and anemia status post brain surgery for aneurysm. ALLERGIES: NO KNOWN DRUG ALLERGIES AND ALLERGIC TO SHELL FISH. PHYSICAL EXAMINATION: VITAL SIGNS: Blood pressure 150/87. HEENT: Normocephalic and atraumatic. NECK: Supple. NEUROLOGIC: Awake. Not following simple commands. Open eyes. Pupils reactive. EOM intact. Visual field full. No facial asymmetry. Spontaneous movement of the extremity noted. Deep tender reflexes 1+, both plantar are downgoing. . Cerebral; gait deferred. IMPRESSION: Encephalopathy, toxic metabolic. CAT scan of the head was done, did not show any acute infarct and workup in progress. We will followup. Carlos Eduardo Patel MD
[2017-02-17] MEDS: Enoxaparin 60 mg Syringe SC SCH (04:58)
[2017-02-17] MEDS: Sodium Chloride 0.9% 1,000 ML IV SCH ×2 (04:59→11:45)
[2017-02-17 06:23] LABS: HEMOGLOBIN 11.1 gm/dL (12.0-16.0); MEAN CELL VOLUME 82.5 fL (80.0-105.0); MEAN CORPUSCULAR HEMOGLOBIN 27.3 pg (25.0-35.0); MEAN CORPUSCULAR HGB CONC 33.1 g/dl (31.0-37.0); MEAN PLATELET VOLUME 10.3 fl (7.0-11.0); RBC 4.06 10^6/uL (3.5-6.1); RED CELL DISTRIBUTION WIDTH 13.9 % (11.5-14.5); WHITE BLOOD COUNT 10.3 10^3/ul (4.5-11.0)
[2017-02-17] MEDS: Insulin Reg-MEDIUM-Coverage SC SCH ×4 (08:33→22:37)
--- NOTE | 2017-02-17 08:45 | CARD ---
APPROVED REPORT EKG Measurement Heart [id number] <Conclusion> Normal sinus rhythm Minimal voltage criteria for LVH, may be normal variant STTW changes c/w ischemia Prolonged QTc, new
[2017-02-17 09:51] LABS: BLOOD UREA NITROGEN 14 mg/dL (7-21); CALCIUM 8.6 mg/dL (8.4-10.5); GFR AFRICAN-AMERICAN > 60; GFR NON-AFRICAN AMERICAN 60; MAGNESIUM 2.1 mg/dL (1.7-2.2)
[2017-02-17] MEDS ORDERED: QUETIAPINE 300 MG PO SCH (10:00)
[2017-02-17 10:02] LABS: TROPONIN I 0.05 ng/mL
[2017-02-17] MEDS: buPROPion 300 mg/24 Hours XL Tab PO SCH (11:43)
[2017-02-17] MEDS: cefTRIAXone 1 gm 1 GM/100 ML BAG IVPB SCH (11:44)
[2017-02-17] MEDS: Metoprolol Succinate 100 mg XL Tab PO SCH (11:45)
--- NOTE | 2017-02-17 17:43 | CP.PCM.PN ---
Addendum entered and electronically signed by Maggie Cross DO 02/17/17 17:45: Medicine progress note for Dr. Juarez Original Note: <Maggie Cross - Last Filed: 02/17/17 17:24> Subjective - Date & Time of Evaluation Date of Evaluation: 02/17/17 Time of Evaluation: 17:24 - Subjective Subjective: 46 F s&E at bedside. Altered mental status resolved, patient is AAOx3. NAEON. PT denies F/C, N/V. Patient states that she does not remember the events leading up to being brought to ED. Denies using drugs besides marijuana which she smokes everyday. Patient made aware of UTI and trichomonas infection and plan to treat. Objective - Vital Signs/Intake and Output Vital Signs (last 24 hours): Temp Pulse Resp BP Pulse Ox 98.3 F 77 16 164/103 H 100 02/17/17 16:58 02/17/17 16:58 02/17/17 16:58 02/17/17 16:58 02/17/17 06:00 Intake and Output: 02/17/17 02/17/17 06:59 18:59 Intake Total 1000 Balance 1000 - Medications Medications: Current Medications Aspirin (Ecotrin) 81 mg PO 0800 [facility] Last Admin: 02/17/17 08:33 Dose: 81 mg Atorvastatin Calcium (Lipitor) 40 mg PO DAILY [facility] Last Admin: 02/17/17 11:43 Dose: 40 mg Bupropion HCl (Wellbutrin Xl) 300 mg PO DAILY [facility] Last Admin: 02/17/17 11:43 Dose: 300 mg Clopidogrel Bisulfate (Plavix) 75 mg PO DAILY [facility] Last Admin: 02/17/17 11:43 Dose: 75 mg Enoxaparin Sodium (Lovenox) 40 mg SC DAILY [facility] PRN Reason: Protocol Glimepiride (Amaryl) 2 mg PO BID [facility] Last Admin: 02/17/17 11:43 Dose: 2 mg Ceftriaxone Sodium (Rocephin 1 Gram Ivpb) 1 gm in 100 mls @ 100 mls/hr IVPB DAILY [facility] PRN Reason: Protocol Last Admin: 02/17/17 11:44 Dose: 100 mls/hr Sodium Chloride (Sodium Chloride 0.9%) 1,000 mls @ 125 mls/hr IV .Q8H [facility] Last Admin: 02/17/17 11:45 Dose: 125 mls/hr Insulin Human Regular (Humulin R Med) 0 units SC ACHS [facility] PRN Reason: Protocol Last Admin: 02/17/17 11:55 Dose: Not Given Lisinopril (Zestril) 10 mg PO DAILY [facility] Metoprolol Succinate (Toprol Xl) 100 mg PO DAILY [facility] Last Admin: 02/17/17 11:45 Dose: 100 mg Quetiapine Fumarate (Seroquel) 300 mg PO DAILY [facility] Last Admin: 02/17/17 11:44 Dose: 300 mg - Labs Labs: 02/17/17 05:20 02/17/17 06:00 PT 10.6 Seconds (9.9-11.8) 02/16/17 10:30 INR 0.98 (0.93-1.08) 02/16/17 10:30 APTT 24.8 Seconds (23.7-30.8) 02/16/17 10:30 - Constitutional Appears: No Acute Distress - Head Exam Head Exam: NORMAL INSPECTION, NORMOCEPHALIC - Eye Exam Eye Exam: EOMI, Normal appearance - ENT Exam ENT Exam: Mucous Membranes Moist - Neck Exam Neck Exam: Full ROM - Respiratory Exam Respiratory Exam: Decreased Breath Sounds, NORMAL BREATHING PATTERN - Cardiovascular Exam Cardiovascular Exam: REGULAR RHYTHM - GI/Abdominal Exam GI & Abdominal Exam: Soft. absent: Tenderness - Extremities Exam Extremities Exam: Full ROM. absent: Pedal Edema - Neurological Exam Neurological Exam: Alert, Awake, Oriented x3 - Psychiatric Exam Psychiatric exam: Normal Mood - Skin Skin Exam: Dry, Intact, Normal Color, Warm. absent: Cyanosis Assessment and Plan - Assessment and Plan (Free Text) Assessment: 46 year old female with a PMH of HTN, DM, bipolar disorder, depression, R sided aneurysm, MS, hx falling, hx UTI, non compliant w/meds, hypothyroidism, and anemia admitted for AMS. Plan: AMS Resolved Monitor for Mental Status changes Follow up EEG 02/16 CT head: Cardio: D-dimer 0.52 02/17 Echo: 42.1% EF 02/16 EK bpm @ NSR prolonged QTc, new Pulm: 02/16 CT Chest: no evidence of PE. trace focal pericardial effusion 02/16 CXR: negative for active disease ID: Trichomonas infection 2gm Flagyl PO Once yesterday. Urine cultures negative, f/u blood cultures Ceftriaxone 1 gm 100cc IVPB daily DM Accuchecks Continue to monitor blood sugar Continue home meds Insulin Regular SS HLD Lipitor 40mg POQD Electrolyte imbalance Monitor Replete as needed daily CMP Bipolar disorder Continue home meds Amaryl 2mgPOBID Wellbutrin 300mg POQD HTN Continue home meds Metoprolol Succ 100mg POQD Lisinopril 10 mg POQD Drug abuse: Tox screen: Positive for Benzoiazepine, cannabinoids ASA 81 mg PO daily Plavix 75mg POQD Lovenox 40mg SCDaily Seroquel 300mg POQD Diet: Consistent Carbohydrate Diet NS 125 cc/hr Observe overnight per Dr. Harman's recommendations discussed with Dr. Ann Cross, DO PGY1 <Ann REID,Ameliaschenectadygustavo - Last Filed: 02/17/17 17:51> Objective - Vital Signs/Intake and Output Vital Signs (last 24 hours): Temp Pulse Resp BP Pulse Ox 98.3 F 94 H 16 164/103 H 100 02/17/17 16:58 02/17/17 17:45 02/17/17 16:58 02/17/17 17:45 02/17/17 06:00 Intake and Output: 02/17/17 02/17/17 06:59 18:59 Intake Total 1000 Balance 1000 - Medications Medications: Current Medications Aspirin (Ecotrin) 81 mg PO 0800 [facility] Last Admin: 02/17/17 08:33 Dose: 81 mg Atorvastatin Calcium (Lipitor) 40 mg PO DAILY [facility] Last Admin: 02/17/17 11:43 Dose: 40 mg Bupropion HCl (Wellbutrin Xl) 300 mg PO DAILY [facility] Last Admin: 02/17/17 11:43 Dose: 300 mg Clopidogrel Bisulfate (Plavix) 75 mg PO DAILY [facility] Last Admin: 02/17/17 11:43 Dose: 75 mg Enoxaparin Sodium (Lovenox) 40 mg SC DAILY [facility] PRN Reason: Protocol Glimepiride (Amaryl) 2 mg PO BID [facility] Last Admin: 02/17/17 17:45 Dose: 2 mg Ceftriaxone Sodium (Rocephin 1 Gram Ivpb) 1 gm in 100 mls @ 100 mls/hr IVPB DAILY [facility] PRN Reason: Protocol Last Admin: 02/17/17 11:44 Dose: 100 mls/hr Insulin Human Regular (Humulin R Med) 0 units SC ACHS [facility] PRN Reason: Protocol Last Admin: 02/17/17 17:46 Dose: 1 units Lisinopril (Zestril) 10 mg PO DAILY [facility] Last Admin: 02/17/17 17:45 Dose: 10 mg Metoprolol Succinate (Toprol Xl) 100 mg PO DAILY [facility] Last Admin: 02/17/17 11:45 Dose: 100 mg Quetiapine Fumarate (Seroquel) 300 mg PO DAILY [facility] Last Admin: 02/17/17 11:44 Dose: 300 mg - Labs Labs: 02/17/17 05:20 02/17/17 06:00 PT 10.6 Seconds (9.9-11.8) 02/16/17 10:30 INR 0.98 (0.93-1.08) 02/16/17 10:30 APTT 24.8 Seconds (23.7-30.8) 02/16/17 10:30 Attending/Attestation - Attestation I have personally seen and examined this patient.: Yes I have fully participated in the care of the patient.: Yes I have reviewed all pertinent clinical information, including history, physical exam and plan: Yes Notes (Text): 02/17/17 17:47 Patient was seen and examined with medical supervisor. 46-year-old female with a past medical history of aneurysmal surgery,CVA old infarcts, MS, diabetes, bipolar disorder and drug abuse was admitted with altered mental status/syncope ? and fall. Patient mental status has come back to normal.WBC has come back to normal.Patient is afebrile.Blood culture and urine cultures are negative.Patient has ischemic changes on EKG, discuss with Cardiology.We will follow up Echo. The issue of ongoing drug abuse was discussed in detail with patient. Management plan was discussed in detail.Education was provided.
--- NOTE | 2017-02-17 17:52 | EEG ---
DATE: 02/17/2017 CONDITION OF THE RECORDING: Drowsy. DIAGNOSIS: Altered mental status. MEDICATIONS: Reviewed by the nurse per reconciliation sheet. INTERPRETATION: This is a 16-channel EEG recording. The background activity was composed of 8 cycles per second. There was small amount of beta activity with 16-20 cycles per second seen in this tracing. There was small amount of theta activity 5-7 cycles per second seen in this tracing. Drowsiness was characterized by mixed beta and theta activities. The sleep was characterized by vertex transiently slowing. Photic stimulation showed no change in the tracing. No paroxysmal activity is noted in this recording. CONCLUSION: This is an abnormal drowsy EEG. No evidence of any epileptiform activity. Please clinically correlate. Facundo Patel MD
--- NOTE | 2017-02-17 18:59 | PN ---
DATE: 02/17/2017 CHIEF COMPLAINT: Altered mental status. SUBJECTIVE: The patient seen and examined at the bedside. She had a transient drop in her glucose yesterday to 58. She came in hyperglycemic acceleration, has urinary tract infection. EEG was normal. No epileptiform activity seen. Currently, she is following questions, doing much better. Blood sugars are stabilized. She follows all commands, moving all extremities. PAST MEDICAL HISTORY: History of hypertension, diabetes, bipolar, depression, right-sided aneurysm, history of UTI, hypothyroidism, and noncompliant with medications. PAST SURGICAL HISTORY: Brain surgery for aneurysm. ALLERGIES: NO KNOWN DRUG ALLERGIES. SOCIAL HISTORY: Former smoker. Denies any illicit drug use, smoking, or EtOH abuse. MEDICATION: Reviewed by nurse practitioner, see med reconciliation sheet. REVIEW OF SYSTEMS: A 14-point review of system is negative except as in the HPI. PHYSICAL EXAMINATION: VITAL SIGNS: Temperature 98.3, pulse rate 77, blood pressure 152/94, respiratory rate of 16. GENERAL: The patient is sitting up in bed, in no acute distress. HEENT: Head is atraumatic and normocephalic. PERRLA. Extraocular muscles intact. NECK: Supple. No JVD. No adenopathy noted. LUNGS: Clear to auscultation. No adventitious sounds. HEART: S1 and S2, normal rate and rhythm. No murmurs, rubs, or gallops. ABDOMEN: Soft, nontender, nondistended. Bowel sounds present. EXTREMITIES: No clubbing, no cyanosis. Peripheral pulses 2+ felt bilaterally. NEUROLOGIC: The patient is alert and oriented to person and place, month, and year. Short attention span and short thought process. Cranial nerves II through XII intact. Motor exam: Moves all extremities equally. No pronator drift seen. Sensory exam: Diffuse light touch and pinprick to calves bilaterally. Diffuse vibration of the toes. DTRs are 2+ throughout and 1 at the ankles. Coordination: [id number] intact. Gait is deferred for now. LABORATORY DATA: Sodium 141, potassium 3.9, chloride 113, carbon dioxide 17, BUN of 14, creatinine 1, random glucose 60. ASSESSMENT: This is a 46-year-old woman with past medical history of hypertension, type 2 diabetes, bipolar disorder, right-sided aneurysm, admitted for altered mental status, found to have urinary tract infection, trichomonas as well as blood sugars above 500. Altered mental status secondary to toxic metabolic encephalopathy from her underlying hyperglycemic accelerations and urinary tract infection. RECOMMENDATIONS: At this time, I recommend: 1. Diabetic education. 2. Keep blood sugars between 140 to 180 and avoid hypoglycemic and hyperglycemic accelerations. 3. Continue with aspirin 81 and Plavix 75 mg and Lipitor 40 mg for stroke prevention. 4. Avoid sedative medications. 5. Continue with antibiotics for underlying urinary tract infection and monitor electrolytes and correct accordingly. 6. Continue current present medical management. Thank you for this follow up. We will sign off. Neurologically stable. Facundo Patel MD
--- NOTE | 2017-02-18 01:20 | CON ---
REASON FOR CONSULTATION: Abnormal EKG. The patient is a very poor historian. 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 The patient does not recall anything about the event and when brought to the emergency room, she was noted to be drowsy, but arousable and her blood sugar in the emergency room was 489. The patient when asked about any history of heart attack in the past or any coronary intervention, the patient stated that she does not know and could not answer appropriately. The patient denies any chest pain at this time. The patient's most recent echo in March of last year revealed moderate concentric LVH with normal systolic function. SOCIAL HISTORY: The patient is a smoker and drinker. She has grown up children. MEDICATIONS: Amaryl 2 mg p.o. twice a day, aspirin 81 mg once daily, Lipitor 40 mg once a day, Lovenox 40 mg subcutaneously once a day, Plavix 75 mg once a day, Rocephin 1 g *------*, Seroquel 300 mg daily, Toprol-XL 100 mg once a day. PHYSICAL EXAMINATION: GENERAL: The patient is a middle-aged female who does not appear to be in acute distress. VITAL SIGNS: Blood pressure 153/94, heart rate 94, temperature 99.7, respirations 20. 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 NECK: No JVD. CHEST: Clear. HEART: Sounds regular. ABDOMEN: Soft. EXTREMITIES: No edema. LABORATORY DATA: Hemoglobin and hematocrit 11.1 and 33.5. White count and platelet count are within normal limits. SMA-7: Sodium 141, potassium 3.9, chloride 115, CO2 of 17, glucose 182, BUN 14, creatinine 1.0. Troponins were 0.06, 0.09, and 0.05. EKG on admission revealed sinus rhythm, consider anterior ischemic T-wave changes. CT angio of the chest revealed no evidence of pulmonary embolus. CT scan without contrast, no evidence of acute infarct. Possible small old high-riding frontal cortical infarct. Old right basal ganglia lacunar infarct and small old bilateral thalamic lacunar infarcts, aneurysm clip in the left parasellar region. Chest x-ray was unremarkable. Urine drug screen is positive for benzodiazepines and cannabinoids. Assessment: 1. Unresponsiveness, rule out cerebrovascular accident. 2. Rule out seizure disorder 3. Indeterminate troponin with anterior ischemic EKG changes, consider underlying coronary artery disease. 4. Uncontrolled diabetes mellitus. 5. History of multiple sclerosis. The patient is practically using scooter and a quad walker at home. RECOMMENDATIONS: Continue aspirin 81 mg once a day, Lipitor 40 mg once a day, Subcutaneous Lovenox at 40 mg once a day, Plavix 75 mg once a day, Toprol-XL 100 mg once a day. I will follow the echocardiograph study. Cardiac catheterization will be considered if full neurological workup justifies performing a cardiac cath and there is no evidence of a recent stroke, preferably after performing an MRI if there is no contraindication as the patient has some vascular clips noted intracranially. Kanu Harman MD
[2017-02-18 01:27] VITALS: RESP 20
[2017-02-18 06:24] VITALS: PULSE 75
[2017-02-18 06:25] VITALS: BP 168/100; TEMP 98.2; O2SAT 99
[2017-02-18] MEDS: Insulin Reg-MEDIUM-Coverage SC SCH ×3 (07:44→11:49)
[2017-02-18] MEDS: cefTRIAXone 1 gm 1 GM/100 ML BAG IVPB SCH (09:50)
--- NOTE | 2017-02-18 09:52 | CARD ---
APPROVED REPORT EXAM: Two-dimensional and M-mode echocardiogram with Doppler and color Doppler. Other Information Quality : AverageRhythm : INDICATION LVFX 2D DIMENSIONS Left Atrium (2D)5.0 (1.6-4.0cm)IVSd1.4 (0.7-1.1cm) LVDd4.2 (3.9-5.9cm)PWd1.4 (0.7-1.1cm) LVDs3.3 (2.5-4.0cm)FS (%) 20.4 % LVEF (%)42.0 (>50%) M-Mode DIMENSIONS Aortic Root3.60 (2.2-3.7cm)Aortic Cusp Exc.2.10 (1.5-2.0cm) Aortic Valve AoV Peak Wuqikuam476.0cm/s Mitral Valve MV E Rzuoexke37.8cm/sMV A Vvfybiyw18.6cm/sE/A ratio0.7 TDI Lateral E' Peak V5.07cm/sMedial E' Peak V4.78cm/sE/Lateral E'12.8 E/Medial E'13.6 Pulmonary Valve PV Peak Hsjoller515.0cm/sPV Peak Grad.4mmHg Tricuspid Valve TR Peak Xootdydu025gk/sRAP [id number] Peak Gr.19mmHg [id number] LEFT VENTRICLE The left ventricle is normal size. There is mild to moderate concentric left ventricular hypertrophy. Left ventricle systolic function is mildly impaired. The Ejection Fraction is 40-45%. RIGHT VENTRICLE The right ventricle is normal size. ATRIA The left atrium is mildly dilated. The right atrium size is normal. The interatrial septum is intact with no evidence for an atrial septal defect. AORTIC VALVE The aortic valve is normal in structure. MITRAL VALVE The mitral valve is normal in structure. Mitral regurgitation is trace. TRICUSPID VALVE The tricuspid valve is normal in structure. PULMONIC VALVE The pulmonary valve is normal in structure. GREAT VESSELS The aortic root is normal in size. PERICARDIAL EFFUSION There is no pericardial effusion. <Conclusion> The left ventricle is normal size. There is mild to moderate concentric left ventricular hypertrophy. Left ventricle systolic function is mildly impaired. The Ejection Fraction is 40-45%.
[2017-02-18] MEDS ORDERED: Enoxaparin 40 mg Syringe SC SCH (10:00)
[2017-02-18] MEDS: Metoprolol Succinate 100 mg XL Tab PO SCH (11:50)
[2017-02-18] MEDS: buPROPion 300 mg/24 Hours XL Tab PO SCH (11:50)
--- NOTE | 2017-02-18 14:56 | CP.PCM.DIS ---
<Salvatore Donahue - Last Filed: 02/18/17 15:01> Provider - Provider Date of Admission: 02/16/17 12:48 Attending physician: Richard Osullivan MD Primary care physician: Suly Jin MD Consults: Cardiology: Kanu Harman Neurology: Facundo Patel Time Spent in preparation of Discharge (in minutes): 30 Diagnosis - Discharge Diagnosis (1) Altered mental status Status: Acute (2) UTI (urinary tract infection) Status: Acute Hospital Course - Lab Results Lab Results: Most Recent Lab Values WBC 10.3 10^3/ul (4.5-11.0) D 02/17/17 05:20 RBC 4.06 10^6/uL (3.5-6.1) 02/17/17 05:20 Hgb 11.1 gm/dL (12.0-16.0) L 02/17/17 05:20 Hct 33.5 % (36.0-48.0) L 02/17/17 05:20 MCV 82.5 fL (80.0-105.0) 02/17/17 05:20 MCH 27.3 pg (25.0-35.0) 02/17/17 05:20 MCHC 33.1 g/dl (31.0-37.0) 02/17/17 05:20 RDW 13.9 % (11.5-14.5) 02/17/17 05:20 Plt Count 194 10^3/uL (120.0-450.0) 02/17/17 05:20 MPV 10.3 fl (7.0-11.0) 02/17/17 05:20 Gran % 85.7 % (50.0-68.0) H 02/16/17 10:30 Lymph % (Auto) 10.0 % (22.0-35.0) L 02/16/17 10:30 Larue % (Auto) 4.0 % (1.0-6.0) 02/16/17 10:30 Eos % (Auto) 0.2 % (1.5-5.0) L 02/16/17 10:30 Baso % (Auto) 0.1 % (0.0-3.0) 02/16/17 10:30 Gran # 11.96 (1.4-6.5) H 02/16/17 10:30 Lymph # 1.4 (1.2-3.4) 02/16/17 10:30 Larue # 0.6 (0.1-0.6) 02/16/17 10:30 Eos # 0.0 (0.0-0.7) 02/16/17 10:30 Baso # 0.02 K/mm3 (0.0-2.0) 02/16/17 10:30 PT 10.6 Seconds (9.9-11.8) 02/16/17 10:30 INR 0.98 (0.93-1.08) 02/16/17 10:30 APTT 24.8 Seconds (23.7-30.8) 02/16/17 10:30 D-Dimer, Quantitative 0.52 mg/L FEU (0-0.50) H 02/16/17 19:18 pO2 43 mm/Hg (30-55) 02/16/17 14:35 VBG pH 7.36 (7.32-7.43) 02/16/17 14:35 VBG pCO2 37.0 (40-60) L 02/16/17 14:35 VBG HCO3 20.9 mmol/l (21-28) L 02/16/17 14:35 VBG Total CO2 22.0 mmol.L (22-28) 02/16/17 14:35 VBG O2 Sat (Calc) 85.5 % (40-65) H 02/16/17 14:35 VBG Base Excess -4.0 mmol/L (0.0-2.0) L 02/16/17 14:35 VBG Potassium 3.7 mmol/L (3.6-5.2) 02/16/17 14:35 Sodium 137.0 mmol/L (132-148) 02/16/17 14:35 Chloride 114.0 mmol/L (98-107) H 02/16/17 14:35 Glucose 325 mg/dl (65-105) H 02/16/17 14:35 Lactate 1.8 mmol/L (0.7-2.1) 02/16/17 14:35 FiO2 21.0 % 02/16/17 14:35 Sodium 141 mmol/L (132-148) 02/17/17 06:00 Potassium 3.9 mmol/L (3.6-5.0) 02/17/17 06:00 Chloride 113 mmol/L (98-107) H 02/17/17 06:00 Carbon Dioxide 17 mmol/L (21-33) L 02/17/17 06:00 Anion Gap 15 (10-20) 02/17/17 06:00 BUN 14 mg/dL (7-21) 02/17/17 06:00 Creatinine 1.0 mg/dL (0.5-1.4) 02/17/17 06:00 Est GFR ( Amer) > 60 02/17/17 06:00 Est GFR (Non-Af Amer) 60 02/17/17 06:00 POC Glucose (mg/dL) 275 mg/dL (65-110) H 02/18/17 11:06 Random Glucose 182 mg/dL (70-110) H 02/17/17 06:00 Calcium 8.6 mg/dL (8.4-10.5) 02/17/17 06:00 Phosphorus 3.2 mg/dL (2.5-4.5) 02/16/17 10:30 Magnesium 2.1 mg/dL (1.7-2.2) 02/17/17 06:00 Total Bilirubin 0.7 mg/dL (0.2-1.3) 02/16/17 10:30 AST 20 U/L (15-39) 02/16/17 10:30 ALT 19 U/L (7-56) 02/16/17 10:30 Alkaline Phosphatase 94 U/L (38-133) 02/16/17 10:30 Lactate Dehydrogenase 620 U/L (333-699) 02/17/17 06:00 Total Creatine Kinase 68 U/L (35-230) 02/17/17 06:00 Troponin I 0.05 ng/mL D 02/17/17 06:00 Total Protein 7.4 g/dL (5.8-8.3) 02/16/17 10:30 Albumin 3.9 g/dL (3.0-4.8) 02/16/17 10:30 Globulin 3.6 gm/dL 02/16/17 10:30 Albumin/Globulin Ratio 1.1 (1.1-1.8) 02/16/17 10:30 Venous Blood Potassium 3.7 mmol/L (3.6-5.2) 02/16/17 14:35 Urine Color Yellow (YELLOW) 02/16/17 11:30 Urine Appearance Sl cloudy (CLEAR) 02/16/17 11:30 Urine pH 7.0 (4.7-8.0) 02/16/17 11:30 Ur Specific [place] 1.010 (1.005-1.035) 02/16/17 11:30 Urine Protein 30 mg/dL (<30 mg/dL) H 02/16/17 11:30 Urine Glucose (UA) >=1000 mg/dL (NEGATIVE) 02/16/17 11:30 Urine Ketones Negative mg/dL (NEGATIVE) 02/16/17 11:30 Urine Blood Small (NEGATIVE) H 02/16/17 11:30 Urine Nitrate Negative (NEGATIVE) 02/16/17 11:30 Urine Bilirubin Negative (NEGATIVE) 02/16/17 11:30 Urine Urobilinogen 1.0 E.U./dL (<1 E.U./dL) H 02/16/17 11:30 Ur Leukocyte Esterase Small Tarik/uL (NEGATIVE) H 02/16/17 11:30 Urine RBC 0 - 2 /hpf (0-2) 02/16/17 11:30 Urine WBC 25 - 30 /hpf (0-6) 02/16/17 11:30 Ur Epithelial Cells 1 - 3 /hpf (0-5) 02/16/17 11:30 Urine Bacteria Small (NEG) 02/16/17 11:30 Urine Other Trichomonas 02/16/17 11:30 Salicylates < 1 mg/dL (2.0-20.0) L 02/16/17 10:30 Urine Opiates Screen Negative (NEGATIVE) 02/16/17 11:30 Urine Methadone Screen Negative (NEGATIVE) 02/16/17 11:30 Acetaminophen < 10.0 ug/ml (10.0-20.0) L 02/16/17 10:30 Ur Barbiturates Screen Negative (NEGATIVE) 02/16/17 11:30 Ur Phencyclidine Scrn Negative (NEGATIVE) 02/16/17 11:30 Ur Amphetamines Screen Negative (NEGATIVE) 02/16/17 11:30 U Benzodiazepines Scrn Positive (NEGATIVE) H 02/16/17 11:30 U Oth Cocaine Metabols Negative (NEGATIVE) 02/16/17 11:30 U Cannabinoids Screen Positive (NEGATIVE) H 02/16/17 11:30 Alcohol, Quantitative < 10 mg/dL (0-10) 02/16/17 10:30 - Hospital Course Hospital Course: Patient is a 46 year old female with past medical history of HTN, DM, bipolar disorder and right sided aneurysm who was admitted fro [facility]. Upon arrival the patient was arounsable, slightly lethargic and only answering minimal questions at time of assessment. The patient was evaluated in the ED and was shown to have a blood sugar of 400. D-dimer in the ED was slightly elevated at 0.[address] of her chest was done and shown to be negative for pulmonary embolism. The patient was admitted for observation and further workup. A toxicology screen was done showing positive results for THC and Benzodiazepines. Neurology was consulted and an EEG was done showing an abnormal drowsy EEG without evidence of epileptiform activity. Cardiology was consulted and an echocardiogram was done showing LVEF of 40-45% with mild to moderate concentric left ventricular hypertrophy. Patient was noted to have positive Trichomonas on urinalysis and was treated with Flagyl and ceftriaxone. Patient was evaluated to be hemodynamically stable and to have returned to baseline mental status and was discharged to follow up outpatient. - Date & Time of H&P Date of H&P: 02/16/17 Time of H&P: 15:00 Discharge Exam - Head Exam Head Exam: ATRAUMATIC, NORMAL INSPECTION, NORMOCEPHALIC - Eye Exam Eye Exam: EOMI, PERRL - ENT Exam ENT Exam: Mucous Membranes Moist, Normal Exam - Neck Exam Neck exam: Full Rom - Respiratory Exam Respiratory Exam: Clear to PA & Lateral, NORMAL BREATHING PATTERN - Cardiovascular Exam Cardiovascular Exam: REGULAR RHYTHM, +S1, +S2 - GI/Abdominal Exam GI & Abdominal Exam: Normal Bowel Sounds - Extremities Exam Extremities exam: full ROM, pedal pulses present - Neurological Exam Neurological exam: Alert, CN II-XII Intact, Normal Gait, Oriented x3 - Psychiatric Exam Psychiatric exam: Normal Affect, Normal Mood - Skin Skin Exam: Dry, Normal Color, Warm Discharge Plan - Discharge Medications Prescriptions: Aspirin 81 mg PO DAILY #30 tab.chew Clopidogrel [Plavix] 75 mg PO DAILY #30 tab - Follow Up Plan Condition: GUARDED Disposition: HOME/ ROUTINE Instructions: Urinary Tract Infection in Women (DC), Sepsis (GEN), Altered Mental Status (GEN), Diabetic Hyperglycemia (DC) Additional Instructions: Discharge patient home today. Continue all home medications as previously prescribed, including new prescriptions- Plavix 75 mg by mouth once a day. Given today. RESUME TOMORROW. Already taking Aspirin at home. Resume taking current dose TOMORROW. ( Prescription given.) 1. Follow up with your Primary Medical Doctor, Dr. Jin in 3 days. 2. Follow up with Cardiology (heart doctor), Dr. Harman or cardiology of choice. 3. Follow up with neurology, Dr. Scott. 4. Advised on cessation of illicit drug use. Referrals: Suly Jin MD [Primary Care Provider] - Follow up with primary <Richard Osullivan - Last Filed: 02/18/17 16:36> Provider - Provider Date of Admission: 02/16/17 12:48 Attending physician: Richard Osullivan MD Primary care physician: Suly Jin MD Hospital Course - Lab Results Lab Results: Most Recent Lab Values WBC 10.3 10^3/ul (4.5-11.0) D 02/17/17 05:20 RBC 4.06 10^6/uL (3.5-6.1) 02/17/17 05:20 Hgb 11.1 gm/dL (12.0-16.0) L 02/17/17 05:20 Hct 33.5 % (36.0-48.0) L 02/17/17 05:20 MCV 82.5 fL (80.0-105.0) 02/17/17 05:20 MCH 27.3 pg (25.0-35.0) 02/17/17 05:20 MCHC 33.1 g/dl (31.0-37.0) 02/17/17 05:20 RDW 13.9 % (11.5-14.5) 02/17/17 05:20 Plt Count 194 10^3/uL (120.0-450.0) 02/17/17 05:20 MPV 10.3 fl (7.0-11.0) 02/17/17 05:20 Gran % 85.7 % (50.0-68.0) H 02/16/17 10:30 Lymph % (Auto) 10.0 % (22.0-35.0) L 02/16/17 10:30 Larue % (Auto) 4.0 % (1.0-6.0) 02/16/17 10:30 Eos % (Auto) 0.2 % (1.5-5.0) L 02/16/17 10:30 Baso % (Auto) 0.1 % (0.0-3.0) 02/16/17 10:30 Gran # 11.96 (1.4-6.5) H 02/16/17 10:30 Lymph # 1.4 (1.2-3.4) 02/16/17 10:30 Larue # 0.6 (0.1-0.6) 02/16/17 10:30 Eos # 0.0 (0.0-0.7) 02/16/17 10:30 Baso # 0.02 K/mm3 (0.0-2.0) 02/16/17 10:30 PT 10.6 Seconds (9.9-11.8) 02/16/17 10:30 INR 0.98 (0.93-1.08) 02/16/17 10:30 APTT 24.8 Seconds (23.7-30.8) 02/16/17 10:30 D-Dimer, Quantitative 0.52 mg/L FEU (0-0.50) H 02/16/17 19:18 pO2 43 mm/Hg (30-55) 02/16/17 14:35 VBG pH 7.36 (7.32-7.43) 02/16/17 14:35 VBG pCO2 37.0 (40-60) L 02/16/17 14:35 VBG HCO3 20.9 mmol/l (21-28) L 02/16/17 14:35 VBG Total CO2 22.0 mmol.L (22-28) 02/16/17 14:35 VBG O2 Sat (Calc) 85.5 % (40-65) H 02/16/17 14:35 VBG Base Excess -4.0 mmol/L (0.0-2.0) L 02/16/17 14:35 VBG Potassium 3.7 mmol/L (3.6-5.2) 02/16/17 14:35 Sodium 137.0 mmol/L (132-148) 02/16/17 14:35 Chloride 114.0 mmol/L (98-107) H 02/16/17 14:35 Glucose 325 mg/dl (65-105) H 02/16/17 14:35 Lactate 1.8 mmol/L (0.7-2.1) 02/16/17 14:35 FiO2 21.0 % 02/16/17 14:35 Sodium 141 mmol/L (132-148) 02/17/17 06:00 Potassium 3.9 mmol/L (3.6-5.0) 02/17/17 06:00 Chloride 113 mmol/L (98-107) H 02/17/17 06:00 Carbon Dioxide 17 mmol/L (21-33) L 02/17/17 06:00 Anion Gap 15 (10-20) 02/17/17 06:00 BUN 14 mg/dL (7-21) 02/17/17 06:00 Creatinine 1.0 mg/dL (0.5-1.4) 02/17/17 06:00 Est GFR ( Amer) > 60 02/17/17 06:00 Est GFR (Non-Af Amer) 60 02/17/17 06:00 POC Glucose (mg/dL) 275 mg/dL (65-110) H 02/18/17 11:06 Random Glucose 182 mg/dL (70-110) H 02/17/17 06:00 Calcium 8.6 mg/dL (8.4-10.5) 02/17/17 06:00 Phosphorus 3.2 mg/dL (2.5-4.5) 02/16/17 10:30 Magnesium 2.1 mg/dL (1.7-2.2) 02/17/17 06:00 Total Bilirubin 0.7 mg/dL (0.2-1.3) 02/16/17 10:30 AST 20 U/L (15-39) 02/16/17 10:30 ALT 19 U/L (7-56) 02/16/17 10:30 Alkaline Phosphatase 94 U/L (38-133) 02/16/17 10:30 Lactate Dehydrogenase 620 U/L (333-699) 02/17/17 06:00 Total Creatine Kinase 68 U/L (35-230) 02/17/17 06:00 Troponin I 0.05 ng/mL D 02/17/17 06:00 Total Protein 7.4 g/dL (5.8-8.3) 02/16/17 10:30 Albumin 3.9 g/dL (3.0-4.8) 02/16/17 10:30 Globulin 3.6 gm/dL 02/16/17 10:30 Albumin/Globulin Ratio 1.1 (1.1-1.8) 02/16/17 10:30 Venous Blood Potassium 3.7 mmol/L (3.6-5.2) 02/16/17 14:35 Urine Color Yellow (YELLOW) 02/16/17 11:30 Urine Appearance Sl cloudy (CLEAR) 02/16/17 11:30 Urine pH 7.0 (4.7-8.0) 02/16/17 11:30 Ur Specific [place] 1.010 (1.005-1.035) 02/16/17 11:30 Urine Protein 30 mg/dL (<30 mg/dL) H 02/16/17 11:30 Urine Glucose (UA) >=1000 mg/dL (NEGATIVE) 02/16/17 11:30 Urine Ketones Negative mg/dL (NEGATIVE) 02/16/17 11:30 Urine Blood Small (NEGATIVE) H 02/16/17 11:30 Urine Nitrate Negative (NEGATIVE) 02/16/17 11:30 Urine Bilirubin Negative (NEGATIVE) 02/16/17 11:30 Urine Urobilinogen 1.0 E.U./dL (<1 E.U./dL) H 02/16/17 11:30 Ur Leukocyte Esterase Small Tarik/uL (NEGATIVE) H 02/16/17 11:30 Urine RBC 0 - 2 /hpf (0-2) 02/16/17 11:30 Urine WBC 25 - 30 /hpf (0-6) 02/16/17 11:30 Ur Epithelial Cells 1 - 3 /hpf (0-5) 02/16/17 11:30 Urine Bacteria Small (NEG) 02/16/17 11:30 Urine Other Trichomonas 02/16/17 11:30 Salicylates < 1 mg/dL (2.0-20.0) L 02/16/17 10:30 Urine Opiates Screen Negative (NEGATIVE) 02/16/17 11:30 Urine Methadone Screen Negative (NEGATIVE) 02/16/17 11:30 Acetaminophen < 10.0 ug/ml (10.0-20.0) L 02/16/17 10:30 Ur Barbiturates Screen Negative (NEGATIVE) 02/16/17 11:30 Ur Phencyclidine Scrn Negative (NEGATIVE) 02/16/17 11:30 Ur Amphetamines Screen Negative (NEGATIVE) 02/16/17 11:30 U Benzodiazepines Scrn Positive (NEGATIVE) H 02/16/17 11:30 U Oth Cocaine Metabols Negative (NEGATIVE) 02/16/17 11:30 U Cannabinoids Screen Positive (NEGATIVE) H 02/16/17 11:30 Alcohol, Quantitative < 10 mg/dL (0-10) 02/16/17 10:30 Attending/Attestation - Attestation I have personally seen and examined this patient.: Yes I have fully participated in the care of the patient.: Yes I have reviewed all pertinent clinical information, including history, physical exam and plan: Yes Notes (Text): 02/18/17 16:32 attending note; Patient seen and examined with resident. Patient is a 46-year-old female with a past medical history of aneurysmal surgery, old infarcts, MS, diabetes, bipolar disorder was admitted with altered mental status/syncope and fall. Syncope; CT head is negative for acute infarct. Neurology evaluation appreciated. EEG showed no epileptiform activity.History of MS. Sepsis; possible UTI with leukocytosis. treated with IV Rocephin. One dose of Flagyl given for Trichomonas in urine. urine culture is negative. uncontrolled diabetes; continue insulin. Acute renal failure;resolved after hydration . possibly secondary to dehydration. Abnormal EKG; T-wave changes in lateral leads. cardiac enzymes 3 Indeterminate. Continue aspirin on Plavix and Coreg. Cardiology evaluation with Dr. Harman appreciated. Echo showed mildly decreased LV function. Upon discharge the patient will follow-up with PMD Dr. Jin. diagnosis; Altered mental status Syncope Uncontrolled diabetes Acute renal failure multiple sclerosis Anemia 02/18/17 16:35
--- NOTE | 2017-02-18 15:15 | PN ---
SUBJECTIVE: The patient denies any chest pain. No dyspnea. PHYSICAL EXAMINATION: VITAL SIGNS: Blood pressure 168/100, heart rate is 75, temperature 98.2, respirations 20. HEENT: The patient has right eye prosthesis. NECK: No JVD. CHEST: Clear. HEART: S1 and S2 regular. EXTREMITIES: No edema. LABORATORY DATA: Hemoglobin and hematocrit yesterday 11.1 and 33.5. White count and platelet count are within normal limits. Today blood sugar is 229 and 275. EEG; abnormal drowsy EEG, no evidence of epileptiform activity. ASSESSMENT: 1. Unresponsiveness. 2. Ischemic electrocardiogram changes with indeterminate troponin level range. 3. History of multiple cerebrovascular accident. 4. Multiple sclerosis. 5. Mild anemia. 6. Uncontrolled hypertension. CONDITIONS: Agree with increasing Cozaar 200 mg once a day. Continue aspirin 81 mg once a day, Lipitor 20 mg once a day, Plavix 75 mg once a day, Toprol XL 100 mg once a day, Vistaril 10 mg once a day. The echocardiograph study report revealed ejection fraction her range 40% to 45%. I discussed the case at length with hospitalist and Dr. Osullivan. The patient is a poor candidate for invasive cardiac workup and conservative medical approach is recommended with the followup in the clinic. At anytime, the patient develops acute EKG changes or retrosternal chest pain then cardiac catheterization will be considered. Kanu Harman MD
== END 2017-02-18 13:46 | disposition home or self-care (01) ==
LOC: ED 10:10 → ERH 12:48 → 3RSO 14:40 → 2RNO 19:06
PROVIDERS: ADMIT Internal Medicine; ATTEND Internal Medicine
DX: E11.65 Type 2 diabetes mellitus with hyperglycemia (principal); N39.0 Urinary tract infection, site not specified; G92 Toxic encephalopathy; G35 Multiple sclerosis; E87.6 Hypokalemia; E83.42 Hypomagnesemia; I11.9 Hypertensive heart disease without heart failure; I51.7 Cardiomegaly; F31.9 Bipolar disorder, unspecified; E03.9 Hypothyroidism, unspecified; D64.9 Anemia, unspecified; N17.9 Acute kidney failure, unspecified; F17.210 Nicotine dependence, cigarettes, uncomplicated; E78.5 Hyperlipidemia, unspecified; F12.10 Cannabis abuse, uncomplicated; R55 Syncope and collapse; Z86.73 Personal history of transient ischemic attack (TIA), and cerebral infarction without residual deficits; Z91.19 Patient's noncompliance with other medical treatment and regimen; Z91.14 Patient's other noncompliance with medication regimen
CPT/HCPCS: 36415; 70450; 71010; 71275; 80048; 80053; 80320; 80324; 80329; 80345; 80346; 80349; 80353; 80358; 80361; 81001; 82550; 82803; 82948; 83615; 83735; 83992; 84100; 84484; 85025; 85027; 85378; 85610; 85730; 87040; 87086; 93005; 93306; 95812; 96361; 96365; 96366; 96367; 96372; 96375; 97116; 97162; 97530; 99285; G0378; G8978; G8980; J0360; J0696; J1650; J3475; J7040; Q9967

== ENCOUNTER 2017-03-24 10:28 | Emergency (ER) | payer MEDICAID ==
[2017-03-24 10:29] VITALS: BMI 25.8
[2017-03-24 11:05] VITALS: BP 110/70; PULSE 72; RESP 16; TEMP 97.9; O2SAT 98
--- NOTE | 2017-03-24 11:19 | ED PDOC ---
Arrival/HPI - General Chief Complaint: Altered Mental Status Time Seen by Provider: 03/24/17 11:13 - History of Present Illness Narrative History of Present Illness (Text): 03/24/17 11:13 46yo female, states she has a hx of MS, presents with AMS, as per EMS. Pt states she feels well, states her homemaker called EMS, and she does not wish to be examined, does not want to answer questions, and wants to go home. Past Medical History - Provider Review Nursing Documentation Reviewed: Yes - Infectious Disease Hx of Infectious Diseases: None - Reproductive Menopause: No - Cardiac Hx Cardiac Disorders: Yes Hx Hypertension: Yes - Pulmonary Hx Respiratory Disorders: Yes Hx Asthma: Yes - Neurological Hx Neurological Disorder: Yes Hx Meningitis: Yes Hx Multiple Sclerosis: Yes Other/Comment: Rt. 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 - Endocrine/Metabolic Hx Diabetes Mellitus Type 2: Yes - Integumentary Hx Dermatological Disorder: Yes (multiple tatoos, scar lle) - Musculoskeletal/Rheumatological Hx Falls: No - Genitourinary/Gynecological Hx Urinary Tract Infection: Yes - Psychiatric Hx Psychophysiologic Disorder: Yes Hx Anxiety: Yes Hx Bipolar Disorder: Yes Hx Depression: Yes Hx Panic Disorder: Yes Hx Substance Use: No - Surgical History Hx Section: Yes Other/Comment: neuro - Anesthesia Hx Anesthesia: No Hx Anesthesia Reactions: No Family/Social History Family/Social History: Unknown Family HX Smoking Status: Former Smoker Hx Alcohol Use: Yes Hx Substance Use: No Allergies/Home Meds Allergies/Adverse Reactions: Allergies shellfish derived Allergy (Severe, Verified 02/16/17 12:53) RASH Home Medications: Home Meds Medication Instructions Recorded Confirmed Atorvastatin [Lipitor] 40 mg PO DAILY 12/30/15 02/16/17 Glimepiride [amaRYL] 2 mg PO BID 12/30/15 02/16/17 MetFORMIN [glucoPHAGE] 1,000 mg PO BID 12/30/15 02/16/17 Metoprolol Succinate [Toprol XL] 100 mg PO DAILY 12/30/15 02/16/17 QUEtiapine [SEROquel] 300 mg PO DAILY 12/30/15 02/16/17 SITagliptin [Januvia] 100 mg PO DAILY 12/30/15 02/16/17 Tolterodine [Detrol LA] 4 mg PO DAILY 12/30/15 02/16/17 Valsartan [Diovan] 160 mg PO DAILY 12/30/15 02/16/17 buPROPion XL [Wellbutrin XL] 300 mg PO DAILY 12/30/15 02/16/17 Review of Systems - Review of Systems Systems not reviewed;Unavailable: Uncooperative Physical Exam - Physical Exam Physical Exam Limitations: Uncooperative Vital Signs Reviewed: Yes Vital Signs Temp Pulse Resp BP Pulse Ox 03/24/17 10:45 97.9 F 72 16 110/70 98 Temperature: Afebrile Blood Pressure: Normal Pulse: Regular Respiratory Rate: Normal Appearance: Positive for: Non-Toxic, Comfortable. No: Ill-Appearing Pain Distress: None Mental Status: Positive for: Alert and Oriented X 3. No: Confused, Agitated, Lethargic - Systems Exam Neurological: Present: Other (speaking full sentences without difficulty, ANOx3) Medical Decision Making ED Course and Treatment: 03/24/17 11:16 The patient refuses admission and wishes to leave the Emergency Department against my medical advice. Patient was told that admission to the hospital is necessary and a full explanation of the reasons why was given, and understood by patient. The risks of leaving were explained and include worsening of condition, and permanent disability and from an undiagnosed or untreated condition. The patient accepts these risks, and is in my judgment is competent and capable of understanding the clinical situation and my explanation of the risks of leaving. Patient was given the opportunity to ask questions and change mind. The patient was instructed regarding the best care for the present symptoms, and to follow up with her primary physician as soon as possible, or return to the Emergency Department at any time for continuing care. Pt offered transportation home, but she refused. States she can walk home and she feels comfortable walking home. Disposition/Present on Arrival - Present on Arrival Any Indicators Present on Arrival: Yes History of DVT/PE: No History of Uncontrolled Diabetes: Yes Urinary Catheter: No History of Decub. Ulcer: No History Surgical Site Infection Following: None - Disposition Have Diagnosis and Disposition been Completed?: Yes Diagnosis: Uncontrolled diabetes mellitus Disposition: AGAINST MEDICAL ADVICE Disposition Time: 11:19 Patient Plan: Discharge Patient Problems: Current Active Problems Problem Status Onset Uncontrolled diabetes mellitus Acute Condition: GUARDED Discharge Instructions (ExitCare): Against Medical Advice (ED) Additional Instructions: PLEASE RETURN TO THE EMERGENCY DEPARTMENT FOR NEW OR WORSENING SYMPTOMS. RETURN RIGHT AWAY IF YOU CANNOT FOLLOW UP WITH YOUR PRIMARY CARE DOCTOR, CLINIC, OR SPECIALIST IN 1-2 DAYS. Referrals: Karthikeyan Griffin, [Primary Care Provider] - Follow up with primary Roshan De Jesus MD [Medical Doctor] - Follow up with primary Forms: [employer] (Maltese)
== END 2017-03-24 11:30 | disposition left against medical advice (07) ==
LOC: ED 10:28
DX: E11.9 Type 2 diabetes mellitus without complications (principal); G35 Multiple sclerosis; I10 Essential (primary) hypertension; Z87.891 Personal history of nicotine dependence

== ENCOUNTER 2017-08-31 12:23 | Emergency (ER) | payer MEDICAID ==
[2017-08-31 12:53] VITALS: TEMP 98.1; BMI 23.3
--- NOTE | 2017-08-31 12:53 | ED PDOC ---
Arrival/HPI - General Time Seen by Provider: 08/31/17 12:45 Historian: EMS - History of Present Illness Narrative History of Present Illness (Text): 08/31/17 12:53 A 47 year old female, whose past medical history includes diabetes, [place], CVA and multiple sclerosis, brought into the emergency department by EMS for hyperglycemia. Patient was seen at an urgent center and found to have a finger stick in the 600's. Patient was instructed to come to the emergency room for further evaluation. On examination, patient is lethargic, unable to keep her eyes open or answer any questions. Patient notes she went to the urgent care because her "dad left her in 1992." Patient is a poor historian, HPI and ROS limited. Time/Duration: Prior to Arrival Past Medical History - Provider Review Nursing Documentation Reviewed: Yes - Infectious Disease Hx of Infectious Diseases: None - Cardiac Hx Cardiac Disorders: Yes Hx Hypertension: Yes - Pulmonary Hx Respiratory Disorders: Yes Hx Asthma: Yes - Neurological Hx Neurological Disorder: Yes Hx Meningitis: Yes Hx Multiple Sclerosis: Yes Other/Comment: Rt. 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 - Endocrine/Metabolic Hx Diabetes Mellitus Type 2: Yes - Integumentary Hx Dermatological Disorder: Yes (multiple tatoos, scar lle) - Musculoskeletal/Rheumatological Hx Falls: No - Genitourinary/Gynecological Hx Urinary Tract Infection: Yes - Psychiatric Hx Psychophysiologic Disorder: Yes Hx Anxiety: Yes Hx Bipolar Disorder: Yes Hx Depression: Yes Hx Panic Disorder: Yes Hx Substance Use: No - Surgical History Hx Section: Yes Other/Comment: neuro - Anesthesia Hx Anesthesia: No Hx Anesthesia Reactions: No Family/Social History - Physician Review Nursing Documentation Reviewed: Yes Family/Social History: No Known Family HX Smoking Status: Former Smoker Hx Alcohol Use: Yes Hx Substance Use: No Allergies/Home Meds Allergies/Adverse Reactions: Allergies shellfish derived Allergy (Severe, Verified 02/16/17 12:53) RASH Home Medications: Home Meds Medication Instructions Recorded Confirmed Atorvastatin [Lipitor] 40 mg PO DAILY 12/30/15 02/16/17 Glimepiride [amaRYL] 2 mg PO BID 12/30/15 02/16/17 MetFORMIN [glucoPHAGE] 1,000 mg PO BID 12/30/15 02/16/17 Metoprolol Succinate [Toprol XL] 100 mg PO DAILY 12/30/15 02/16/17 QUEtiapine [SEROquel] 300 mg PO DAILY 12/30/15 02/16/17 SITagliptin [Januvia] 100 mg PO DAILY 12/30/15 02/16/17 Tolterodine [Detrol LA] 4 mg PO DAILY 12/30/15 02/16/17 Valsartan [Diovan] 160 mg PO DAILY 12/30/15 02/16/17 buPROPion XL [Wellbutrin XL] 300 mg PO DAILY 12/30/15 02/16/17 Review of Systems - Review of Systems Systems not reviewed;Unavailable: Acuity of Condition Physical Exam Vital Signs Reviewed: Yes Vital Signs Temp Pulse Resp BP Pulse Ox 08/31/17 16:00 88 16 155/100 H 98 08/31/17 15:29 88 211/122 H 08/31/17 15:27 87 22 211/122 H 99 08/31/17 13:18 98.1 F 89 18 183/113 H 100 08/31/17 12:52 98.1 F 89 18 183/113 H 100 Temperature: Afebrile Blood Pressure: Hypertensive Pulse: Regular Respiratory Rate: Normal Appearance: Positive for: Well-Appearing, Non-Toxic, Comfortable Mental Status: Positive for: Lethargic - Systems Exam Head: Present: Atraumatic, Normocephalic Pupils: Present: PERRL Extroacular Muscles: Present: EOMI Conjunctiva: Present: Normal Mouth: Present: Moist Mucous Membranes Respiratory/Chest: Present: Clear to Auscultation, Good Air Exchange. No: Respiratory Distress, Accessory Muscle Use Cardiovascular: Present: Regular Rate and Rhythm, Normal S1, S2. No: Murmurs Abdomen: Present: Normal Bowel Sounds. No: Tenderness, Distention, Peritoneal Signs Upper Extremity: Present: Normal Inspection. No: Cyanosis, Edema Lower Extremity: Present: Normal Inspection. No: Edema Skin: Present: Warm, Dry, Normal Color. No: Rashes Psychiatric: Present: Lethargic Medical Decision Making ED Course and Treatment: 08/31/17 12:53 Impression: A 47 year old female brought in for hyperglycemia. Patient is a poor historian. Plan: -- Chest xray -- EKG -- Labs -- Blood and Urine culture -- Urinalysis -- Insulin and IV fluids -- Reassess and disposition Progress Notes: EKG shows NSR at 89 BPM with normal axis, normal interval. Interpreted by me. 08/31/17 16:21 On re-evaluation, patient is now alert and oriented. She is requesting to go home. 08/31/17 16:26 Patient is refusing to sign out against medical advice. When patient was handed the documentation she threw the clip board at me and stated "motherfucker you fucking sign that shit". - Lab Interpretations Microbiology Results: Microbiology Results 08/31/17 13:47 Blood-Venous Blood Culture - Final NO GROWTH AFTER 5 DAYS 08/31/17 13:47 Blood-Venous Blood Culture - Final NO GROWTH AFTER 5 DAYS 08/31/17 13:47 Blood-Venous Gram Stain - Final TEST NOT PERFORMED 08/31/17 15:20 Urine,Clean Catch Urine Culture - Final No Growth (<1,000 CFU/ML) Lab Results: 08/31/17 13:47 08/31/17 13:47 Lab Results 08/31/17 15:20: Urine Color Light yellow, Urine Appearance Clear, Urine pH 7.0, Ur Specific [place] 1.015, Urine Protein Trace H, Urine Glucose (UA) >=1000, Urine Ketones Negative, Urine Blood Negative, Urine Nitrate Negative, Urine Bilirubin Negative, Urine Urobilinogen 0.2, Ur Leukocyte Esterase Negative, Urine RBC Negative, Urine WBC 0 - 2, Ur Epithelial Cells 1 - 3, Urine Bacteria Trace 08/31/17 15:08: POC Glucose (mg/dL) 310 H 08/31/17 14:30: pCO2 27 L, pO2 160.0 H, HCO3 20.1 L, ABG pH 7.48 H, ABG Total CO2 20.9 L, ABG O2 Saturation 99.7 H, ABG Base Excess -2.0, ABG Potassium 3.2 L , Glucose 306 H, Lactate 1.1, FiO2 21.0, Sodium 138.0, Chloride 111.0 H, Arterial Blood Potassium 3.2 L 08/31/17 13:47: Alcohol, Quantitative < 10 08/31/17 13:47: Sodium 138, Potassium 3.7, Chloride 103, Carbon Dioxide 26, Anion Gap 13, BUN 14, Creatinine 0.9, Est GFR ( Amer) > 60, Est GFR (Non- Af Amer) > 60, Random Glucose 363 H* D, Calcium 9.5, Total Bilirubin 0.2, AST 18 , ALT 16, Alkaline Phosphatase 69, Lactate Dehydrogenase 512, Total Creatine Kinase 66, Troponin I 0.02 D, Total Protein 7.0, Albumin 3.7, Globulin 3.3, Albumin/Globulin Ratio 1.1 08/31/17 13:47: PT 11.4, INR 1.00 08/31/17 13:47: WBC 8.7, RBC 4.36, Hgb 12.1, Hct 37.1, MCV 85.1, MCH 27.8, MCHC 32.6, RDW 13.7, Plt Count 192, MPV 11.4 H, Gran % 56.1, Lymph % (Auto) 36.4 H, [place] % (Auto) 4.5, Eos % (Auto) 2.3, Baso % (Auto) 0.7, Gran # 4.85, Lymph # ( Auto) 3.2, [place] # (Auto) 0.4, Eos # (Auto) 0.2, Baso # (Auto) 0.06 08/31/17 12:35: POC Glucose (mg/dL) 391 H I have reviewed the lab results: Yes - Medication Orders Current Medication Orders: Discontinued Medications Hydralazine HCl (Apresoline) 20 mg IVP STAT ONE Stop: 08/31/17 15:16 Last Admin: 08/31/17 15:29 Dose: 20 mg IVP Administration Document 08/31/17 15:29 ARINA (Rec: 08/31/17 15:30 ARINA GARSIA-PC) Charges for Administration # of IVP Administrations 1 MAR Pulse and Blood Pressure Document 08/31/17 15:29 ARINA (Rec: 08/31/17 15:30 ARINA GARSIA-PC) Pulse Pulse Rate (60-90) 88 Blood Pressure Blood Pressure (100/60-150/90) 211/122 Sodium Chloride (Sodium Chloride 0.9%) 2,000 mls @ 999 mls/hr IV .Q2H1M STA Stop: 08/31/17 14:55 Last Admin: 08/31/17 13:00 Dose: 999 mls/hr eMAR Start Stop Document 08/31/17 13:00 ARINA (Rec: 08/31/17 15:31 ARINA GARSIA-PC) Intravenous Solution Start Date 08/31/17 Start Time 13:00 End Date 08/31/17 End time 15:00 Total Infusion Time 120 - PA / CHILD AND ADOLESCENT PSYCHIATRIST / Resident Statement MD/DO has reviewed & agrees with the documentation as recorded. - Scribe Statement The provider has reviewed the documentation as recorded by the Joneibe Suly Ronquillo Provider Scribe Attestation: All medical record entries made by the Scribe were at my direction and personally dictated by me. I have reviewed the chart and agree that the record accurately reflects my personal performance of the history, physical exam, medical decision making, and the department course for this patient. I have also personally directed, reviewed, and agree with the discharge instructions and disposition Disposition/Present on Arrival - Present on Arrival Any Indicators Present on Arrival: No History of DVT/PE: No History of Uncontrolled Diabetes: Yes Urinary Catheter: No History Surgical Site Infection Following: None - Disposition Have Diagnosis and Disposition been Completed?: Yes Diagnosis: Hypersomnolence, Altered mental status Disposition: ELOPEMENT - ER ONLY Disposition Time: 16:21 Patient Plan: Other Condition: GOOD Discharge Instructions (ExitCare): Delirium (Confusion) Forms: [employer] (Greenlandic)
[2017-08-31] MEDS ORDERED: Sodium Chloride 0.9% 2,000 ML IV STA (12:55)
[2017-08-31 14:40] LABS: BASO # 0.06 K/mm3 (0.0-2.0); BASO % 0.7 % (0.0-3.0); EOS # 0.2 (0.0-0.7); EOS % 2.3 % (1.5-5.0); GRAN # 4.85 (1.4-6.5); GRAN % 56.1 % (50.0-68.0); HEMOGLOBIN 12.1 g/dL (12.0-16.0); LYMPH # 3.2 (1.2-3.4); LYMPH % 36.4 % (22.0-35.0); MEAN CELL VOLUME 85.1 fl (80.0-105.0); MEAN CORPUSCULAR HEMOGLOBIN 27.8 pg (25.0-35.0); MEAN CORPUSCULAR HGB CONC 32.6 g/dl (31.0-37.0); MEAN PLATELET VOLUME 11.4 fl (7.0-11.0); MONO # 0.4 (0.1-0.6); MONO % 4.5 % (1.0-6.0); RBC 4.36 10^6/uL (3.5-6.1); RED CELL DISTRIBUTION WIDTH 13.7 % (11.5-14.5); WHITE BLOOD COUNT 8.7 10^3/ul (4.5-11.0)
[2017-08-31 14:45] LABS: ARTERIAL BLOOD GAS HCO3 20.1 mmol/L (21-28); ARTERIAL BLOOD GAS O2 SAT 99.7 % (95-98); ARTERIAL BLOOD GAS PCO2 27 mm/Hg (35-45); ARTERIAL BLOOD GAS PH 7.48 (7.35-7.45); ARTERIAL BLOOD GAS TCO2 20.9 mmol.L (22-28)
[2017-08-31 14:49] LABS: ALB/GLOB RATIO 1.1 (1.1-1.8); ALBUMIN 3.7 g/dL (3.0-4.8); ALT/SGPT 16 U/L (7-56); AST/SGOT 18 U/L (14-36); BLOOD UREA NITROGEN 14 mg/dL (7-21); CALCIUM 9.5 mg/dL (8.4-10.5); GFR AFRICAN-AMERICAN > 60; GFR NON-AFRICAN AMERICAN > 60
[2017-08-31 14:55] LABS: TROPONIN I 0.02 ng/mL
[2017-08-31 15:23] LABS: PROTHROMBIN TIME 11.4 SECONDS (9.4-12.5)
[2017-08-31 15:31] VITALS: PULSE 88
[2017-08-31 15:52] LABS: URINE BILIRUBIN NEGATIVE (NEGATIVE); URINE BLOOD NEGATIVE (NEGATIVE); URINE GLUCOSE (UA) >=1000 mg/dL (NEGATIVE); URINE LEUKOCYTE ESTERASE NEGATIVE Leu/uL (NEGATIVE); URINE NITRATE NEGATIVE (NEGATIVE); URINE PROTEIN TRACE mg/dL (<30 mg/dL); URINE UROBILINOGEN 0.2 E.U./dL (<1 E.U./dL)
[2017-08-31 16:00] LABS: URINE APPEARANCE CLEAR (CLEAR); URINE COLOR LIGHT YELLOW (YELLOW)
[2017-08-31 16:07] LABS: URINE BACTERIA TRACE (NEG); URINE RBC NEGATIVE /hpf (0-2); URINE WBC 0 - 2 /hpf (0-6)
[2017-08-31 18:30] VITALS: BP 155/100; RESP 16; O2SAT 98
--- NOTE | 2017-09-01 09:57 | CARD ---
APPROVED REPORT EKG Measurement Heart [id number] <Conclusion> Normal sinus rhythm Possible Left atrial enlargement T wave abnormality, consider inferolateral ischemia Mildly prolonged QTc Increased STTW changes c/w ECG 02/16/17
[2017-09-01] MEDS ORDERED: Insulin Regular 1 UNITS/0.01 ML ML IVP ONE (12:57)
== END 2017-08-31 16:30 | disposition left against medical advice (07) ==
LOC: ED 12:23
DX: G47.10 Hypersomnia, unspecified (principal); R41.82 Altered mental status, unspecified; G35 Multiple sclerosis; I10 Essential (primary) hypertension; E11.9 Type 2 diabetes mellitus without complications; Z86.73 Personal history of transient ischemic attack (TIA), and cerebral infarction without residual deficits; Z87.891 Personal history of nicotine dependence
CPT/HCPCS: 36600; 80053; 80320; 81001; 82550; 82803; 82948; 83615; 84484; 85025; 85610; 87040; 87086; 93005; 96361; 96374; 99285; J0360; J7040

== ENCOUNTER 2018-04-27 16:17 | Emergency (ER) | payer MEDICAID ==
[2018-04-27 16:18] VITALS: BMI 23.3
[2018-04-27 16:52] VITALS: RESP 18; O2SAT 96
--- NOTE | 2018-04-27 17:04 | ED PDOC ---
Arrival/HPI - General Chief Complaint: High Blood Pressure Time Seen by Provider: 04/27/18 16:53 Historian: Patient - History of Present Illness Narrative History of Present Illness (Text): 04/27/18 17:04 A 47 year old female, whose past medical history includes hypertension, diabetes, multiple sclerosis, presents to the emergency department complaining of high blood pressure since earlier today. Patient reports feeling symptoms after emotional upset from her daughter on the phone and her home helper measured her blood pressure noting it to be 191/119, who then urged her to go to emergency room. Patient reports no current distress or any current pain. Patient denies any fever, chills, chest pain, shortness of breath, nausea, vomiting, diarrhea, urinary symptoms, back pain, neck pain, headache, dizziness, or any other complaints. Time/Duration: 4-6 hours (earlier today) Symptom Onset: Sudden Symptom Course: Improving Activities at Onset: Light Context: Home Past Medical History - Provider Review Nursing Documentation Reviewed: Yes - Infectious Disease Hx of Infectious Diseases: None - Cardiac Hx Cardiac Disorders: Yes Hx Hypertension: Yes - Pulmonary Hx Respiratory Disorders: Yes Hx Asthma: Yes - Neurological Hx Neurological Disorder: Yes Hx Meningitis: Yes Hx Multiple Sclerosis: Yes Other/Comment: Rt. 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 - Endocrine/Metabolic Hx Diabetes Mellitus Type 2: Yes - Integumentary Hx Dermatological Disorder: Yes (multiple tatoos, scar lle) - Musculoskeletal/Rheumatological Hx Falls: No - Genitourinary/Gynecological Hx Urinary Tract Infection: Yes - Psychiatric Hx Psychophysiologic Disorder: Yes Hx Anxiety: Yes Hx Bipolar Disorder: Yes Hx Depression: Yes Hx Panic Disorder: Yes Hx Substance Use: No - Surgical History Hx Section: Yes Other/Comment: neuro - Anesthesia Hx Anesthesia: No Hx Anesthesia Reactions: No Family/Social History - Physician Review Nursing Documentation Reviewed: Yes Family/Social History: Unknown Family HX Smoking Status: Former Smoker Hx Alcohol Use: Yes Hx Substance Use: No Allergies/Home Meds Allergies/Adverse Reactions: Allergies shellfish derived Allergy (Severe, Verified 02/16/17 12:53) RASH Home Medications: Home Meds Medication Instructions Recorded Confirmed RX: Atorvastatin [Lipitor] 40 mg PO DAILY 12/30/15 02/16/17 RX: Glimepiride [amaRYL] 2 mg PO BID 12/30/15 02/16/17 RX: MetFORMIN [glucoPHAGE] 1,000 mg PO BID 12/30/15 02/16/17 RX: Metoprolol Succinate XL 100 mg PO DAILY 12/30/15 02/16/17 [Toprol XL] RX: QUEtiapine [SEROquel] 300 mg PO DAILY 12/30/15 02/16/17 RX: SITagliptin [Januvia] 100 mg PO DAILY 12/30/15 02/16/17 RX: Tolterodine [Detrol LA] 4 mg PO DAILY 12/30/15 02/16/17 RX: Valsartan [Diovan] 160 mg PO DAILY 12/30/15 02/16/17 RX: buPROPion XL [Wellbutrin XL] 300 mg PO DAILY 12/30/15 02/16/17 Review of Systems - Physician Review All systems were reviewed & negative as marked: Yes - Review of Systems Constitutional: absent: Fevers, Night Sweats Respiratory: absent: SOB Cardiovascular: absent: Chest Pain Gastrointestinal: absent: Diarrhea, Nausea, Vomiting Genitourinary Female: absent: Urine Output Changes Musculoskeletal: absent: Back Pain, Neck Pain Neurological: absent: Headache, Dizziness Physical Exam Vital Signs Reviewed: Yes Vital Signs Temp Pulse Resp BP Pulse Ox 04/27/18 16:18 98.5 F 83 18 187/110 H 96 Temperature: Afebrile Blood Pressure: Hypertensive Pulse: Regular Respiratory Rate: Normal Appearance: Positive for: Well-Appearing, Non-Toxic, Comfortable Pain Distress: None Mental Status: Positive for: Alert and Oriented X 3 - Systems Exam Head: Present: Atraumatic, Normocephalic Pupils: Present: PERRL Extroacular Muscles: Present: EOMI Conjunctiva: Present: Normal Mouth: Present: Moist Mucous Membranes Neck: Present: Normal Range of Motion Respiratory/Chest: Present: Clear to Auscultation, Good Air Exchange. No: Respiratory Distress, Accessory Muscle Use Cardiovascular: Present: Regular Rate and Rhythm, Normal S1, S2. No: Murmurs Abdomen: No: Tenderness, Distention, Peritoneal Signs Back: Present: Normal Inspection Upper Extremity: Present: Normal Inspection. No: Cyanosis, Edema Lower Extremity: Present: Normal Inspection. No: Edema Neurological: Present: GCS=15, CN II-XII Intact, Speech Normal Skin: Present: Warm, Dry, Normal Color. No: Rashes Psychiatric: Present: Alert, Oriented x 3, Normal Insight, Normal Concentration Medical Decision Making ED Course and Treatment: 04/27/18 18:21 Impression: 47 year old female patient presenting to the emergency room complaining of high blood pressure. Plan: -- EKG -- Reassess and disposition Prior Visits: Notes and results from previous visits were reviewed. Progress Notes: 04/27/18 18:26 Upon reassessment, patient is feeling better and is well rested with a measured BP of 140/95. Patient will follow up with her primary care doctor in 2 days and is advised to return to emergency room should any symptoms worsen. 04/27/18 18:31 EKG: Ordered, reviewed, and independently interpreted the EKG. Rate : 79 BPM Rhythm : NSR Interpretation : No ST-segment elevations or depressions, LVH, T-wave abnormalities, normal intervals. Comparison : Previous EKG for comparison from 08/31/17, results are similar. 04/27/18 18:33 Patient's accucheck was 266 and Patient reports taking her metformin today. Patient was informed of her EKG results and is ready for discharge. - Scribe Statement The provider has reviewed the documentation as recorded by the Scribe Keke Naik All medical record entries made by the Scribe were at my direction and personally dictated by me. I have reviewed the chart and agree that the record accurately reflects my personal performance of the history, physical exam, medical decision making, and the department course for this patient. I have also personally directed, reviewed, and agree with the discharge instructions and disposition. Disposition/Present on Arrival - Present on Arrival Any Indicators Present on Arrival: No History of DVT/PE: No History of Uncontrolled Diabetes: Yes Urinary Catheter: No History of Decub. Ulcer: No History Surgical Site Infection Following: None - Disposition Have Diagnosis and Disposition been Completed?: Yes Diagnosis: Hypertension, Hyperglycemia Disposition: HOME/ ROUTINE Disposition Time: 18:33 Patient Plan: Discharge Condition: STABLE Discharge Instructions (ExitCare): High Blood Pressure in Adults, Hyperglycemia, Adult (DC) Additional Instructions: ANA RIZO, thank you for letting us take care of you today. Your provider was Latonia Yuan MD and you were treated for HIGH BLOOD PRESSURE 197/110. Repeat blood pressure 140/95. The emergency medical care you received today was directed at your acute symptoms. If you were prescribed any medication, please fill it and take as directed. It may take several days for your symptoms to resolve. Return to the Emergency Department if your symptoms worsen, do not improve, or if you have any other problems. Please contact your doctor in 1-2 days. Bring any paperwork you were given at discharge with you along with any medications you are taking to your follow up visit. Our treatment cannot replace ongoing medical care by a primary care provider outside of the emergency department. Thank you for allowing the [facility] team to be part of your care today. Referrals: Jenn Acosta MD [Medical Doctor] - Follow up with primary Forms: [employer] (Libyan)
[2018-04-27 18:24] VITALS: BP 140/95; PULSE 82
[2018-04-27 18:37] VITALS: TEMP 98
--- NOTE | 2018-04-28 08:50 | CARD ---
APPROVED REPORT Date of service: 04/27/2018 EKG Measurement Heart [id number] <Conclusion> Normal sinus rhythm ST & T wave abnormality, consider inferolateral ischemia Abnormal ECG
== END 2018-04-27 18:37 | disposition home or self-care (01) ==
LOC: ED 16:17
DX: I10 Essential (primary) hypertension (principal); E11.65 Type 2 diabetes mellitus with hyperglycemia; Z87.891 Personal history of nicotine dependence